=== PATIENT | female | born 1970 | race Caucasian/White ===

== ENCOUNTER 2018-06-11 16:22 | Inpatient (IN) ==
[2018-06-11 16:54] LABS: Microscopic, Urine URINE MICROSCOPIC (MICROSCOPIC)
[2018-06-11 16:57] LABS: Appearance,Urine SL CLOUDY (Clear); Blood, Urine TRACE-L (Negative); Color,Urine YELLOW (Yellow); Glucose,Urine (UA) 3+ (Negative); Ketones,Urine 2+ (Negative); Leukocyte Esterase,Urine Negative (Negative); Protein,Urine TRACE (Negative)
[2018-06-11 17:01] LABS: Bilirubin,Urine 2+ (Negative)
[2018-06-11 17:04] LABS: Bacteria,Urine 4+ /lpf
[2018-06-11 17:08] LABS: Eosinophils % 0.1 % (0.1-12.0); Hemoglobin 14.2 g/dL (12.2-16.2); Red Cell Distribution Width 14.9 % (11.5-17.5)
[2018-06-11 17:15] LABS: Basophils # 0.3 K/mm3 (0-0.2); Hematocrit 44.9 % (37.0-47.0); Lymphocytes # 1.2 K/mm3 (0.7-4.5); Lymphocytes % 4.5 % (10-50); Mean Corpuscular HGB Conc 31.6 g/dL (31.8-35.4); Mean Corpuscular Hemoglobin 25.6 pg (27.0-31.2); Mean Corpuscular Volume 81.1 fl (81-99); Mean Platelet Volume 9.1 fl (7.4-10.4); Monocytes # 0.9 K/mm3 (0.1-1.0); Monocytes % 3.3 % (1.7-9.3); Neutrophils # 24.4 K/mm3 (1.8-7.8); Neutrophils % 91.1 % (37.0-80.0); Platelet Count 98 K/mm3 (142-424); Red Blood Count 5.54 M/mm3 (4.20-5.40); White Blood Count 26.8 K/mm3 (4.8-10.8)
[2018-06-11 17:20] LABS: Albumin Level 1.6 gm/dL (3.4-5.0); Albumin/Globulin Ratio 0.3 (1.1-1.8); Anion Gap 22.9 mEq/L (5-15); Bilirubin,Total 4.6 mg/dL (0.2-1.0); Calcium 9.1 mg/dL (8.5-10.1); Globulin 5.8 gm/dl (1.3-3.2); Potassium 3.9 mmoL/L (3.5-5.1); Total Protein,Serum 7.4 gm/dL (6.4-8.2)
--- NOTE | 2018-06-11 17:22 | Emergency Department Note ---
ED Disposition Clinical Impression: Nausea & vomiting, Dehydration, Hyperglycemia, Metabolic acidosis, Leucocytosis, Hyponatremia, Lactic acidosis Clinical Impression: (Ruled Out): NVD (normal vaginal delivery) Disposition: Still a Patient Condition on Discharge: Fair Referrals: Nick Kulkarni MD [Primary Care Provider] - - Critical Care Critical Care Time: No Attestation: On 06/11/18, the high probability of a clinically significant, sudden or life threatening deterioration of the following system(s) required my full and direct attention, intervention and personal management. The time I documented below is in addition to time spent performing reported procedures but includes the following listed in this critical care notation. Medical Decision Making - Alphonso Inquiry Pt receiving controlled substance: No Alphonso was queried for this patient: No Vital Signs: 06/11/18 16:29 06/11/18 17:20 06/11/18 18:27 Temperature 98.0 F Temperature Source Oral Pulse Rate [Right Brachial] 129 H 90 116 H Respiratory Rate 20 18 Blood Pressure [Right Arm] 123/70 129/73 125/61 Blood Pressure Mean [Right Arm] 87 91 82 Blood Pressure Source [Right Arm] Automatic Cuff Automatic Cuff Automatic Cuff Blood Pressure Position [Right Arm] Sitting Sitting Sitting 02 Sat by Pulse Oximetry 97 93 L 100 Oxygen Delivery Method Room Air Room Air 06/11/18 18:30 Temperature Temperature Source Pulse Rate [Right Brachial] 119 H Respiratory Rate Blood Pressure [Right Arm] 149/77 H Blood Pressure Mean [Right Arm] 101 Blood Pressure Source [Right Arm] Blood Pressure Position [Right Arm] 02 Sat by Pulse Oximetry 97 Oxygen Delivery Method - Lab Data Lab Results 06/11/18 16:47: Urine Color Yellow, Urine Appearance Sl cloudy, Urine pH 7.0, Ur Specific [place] 1.010, Urine Protein Trace, Urine Glucose (UA) 3+, Urine Ketones 2+, Urine Blood Trace-l, Urine Nitrate Negative, Urine Bilirubin 2+ A, Urine Urobilinogen 2.0, Ur Leukocyte Esterase Negative, Urine WBC 10-20, Ur Squamous Epith Cells 5-10, Urine Bacteria 4+ 06/11/18 16:55: WBC 26.8 H*, RBC 5.54 H, Hgb 14.2, Hct 44.9, MCV 81.1, MCH 25.6 L, MCHC 31.6 L, RDW 14.9, Plt Count 98 L, MPV 9.1, Neut % (Auto) 91.1 H, Lymph % (Auto) 4.5 L, [place] % (Auto) 3.3, Eos % (Auto) 0.1, Baso % (Auto) 1.0, Neut # (Auto) 24.4 H, Lymph # (Auto) 1.2, [place] # (Auto) 0.9, Eos # (Auto) 0.0, Baso # (Auto) 0.3 H, Total Counted 100, Neutrophils % (Manual) 89 H, Band Neutrophils % 1.0, Lymphocytes % (Manual) 7 L, Monocytes % (Manual) 3, Platelet Estimate Moderate decrease, RBC Morphology Normal 06/11/18 16:55: Sodium 123 L, Potassium 3.9, Chloride 85 L, Carbon Dioxide 19 L, Anion Gap 22.9 H, BUN 42 H, Creatinine 1.59 H, Estimated Creat Clear 64, Estimated GFR 35 L, Est GFR ( Amer) 42 L, Glucose 474 H*, Calcium 9.1, Total Bilirubin 4.6 H, AST 13 L, ALT 31, Alkaline Phosphatase 454 H, Total Protein 7.4, Albumin 1.6 L, Globulin 5.8 H, Albumin/Globulin Ratio 0.3 L 06/11/18 16:55: Lactate 2.4 H 06/11/18 16:55: Magnesium 1.4, Total Creatine Kinase 11 L, CK-MB (CK-2) 0.5, CK- MB (CK-2) Rel Index 4.5 H, Troponin I < 0.02 06/11/18 16:55: Acetone Level None detected 06/11/18 17:58: Specimen Source R/r, O2 % R/a, ABG pH 7.43, ABG pCO2 25.7 L, ABG pO2 65.1 L, ABG HCO3 16.8 L, ABG Total CO2 17.6 L, ABG O2 Saturation 93, ABG Base Excess -7.5 L, Brandon Test Y Result diagrams: 06/11/18 16:55 06/11/18 16:55 Orders (Tests/Meds): ED MEDICATIONS Generic Name Dose Route Start Last Admin Trade Name Freq PRN Reason Stop Dose Admin Ertapenem 1 gm/ Sodium 50 mls @ 100 mls/hr 06/11/18 17:30 06/11/18 17:39 Chloride IV 12/02/18 17:29 100 mls/hr Q24H AMAURI Administration Protocol Discontinued Medications Generic Name Dose Route Start Last Admin Trade Name Leroy PRN Reason Stop Dose Admin Sodium Chloride 1,000 mls @ 999 mls/hr 06/11/18 17:30 06/11/18 17:39 Sod Chlor 0.9% 1000ml Bag IV 06/11/18 18:30 999 mls/hr .Q1H1M AMAURI Administration Insulin Human Regular 10 unit 06/11/18 19:13 Humulin R Insulin 100 Units/Ml 10ml Vial SQ 06/11/18 19:14 ONCE ONE ORDERS Category Date Time Status CT head/brain wo con Stat Cat Scan 06/11/18 17:18 Taken Acute abdomen XR series [XR acute abdomen series] Stat Exams 06/11/18 17:18 Taken Chest XR 2 view (NOT portable) [XR chest 2V] Stat Exams 06/11/18 17:24 Taken Complete Blood Count Auto Diff Stat Lab 06/11/18 16:55 Results Drug Screen,Urine Stat Lab 06/11/18 17:18 Ordered Peripheral Smear Review Stat Lab 06/11/18 16:55 Results UA [Urinalysis and Microscopic] Stat Lab 06/11/18 16:47 Ordered Blood Culture Stat Micro 06/11/18 16:50 Ordered Urine Culture Stat Micro 06/11/18 16:47 Received Arterial Blood Gas Stat RT 06/11/18 17:23 Ordered - Radiology Data #1 Image(s): Chest, Abdomen Image Reviewed: Yes I reviewed the patient's radiology image Preliminary Findings: Abnormal CXR: no acute finding right lower lobe granuloma. abdomen: no free air no fluid level Medical Decision Narrative: I spoke with the patient was started feeling better about admission for sugar control and IV fluids and antibiotics. I spoke with Dr. Knight who agreed to admit the patient on behalf of Dr. Dawn. Weakness HPI - General Chief complaint: Weakness Stated complaint: Nauseated, l shoulder pain Time Seen by Provider: 06/11/18 17:00 Mode of Arrival: Wheelchair Limitations: No Limitations Description of Symptoms (Recalled from ER Triage Doc. by RN): Pt reports has been feeling lethargic, n/v since of this past week. Pt reports she saw her PCP on , was prescribed zofran for nausea and had blood work done. Pt reports has been having L shoulder pain, states pain while trying to get off of the couch, pt reports her shoulder hurts when putting pressure on it. Pt friend states pt has been "disoriented" states she hasn't been able to remember things. - History of Present Illness HPI Narrative: 47 years old white female with a history of diabetes mellitus who developed nausea vomiting 4 days ago. She was seen by her primary care physician given Zofran with resolution of her vomiting. Has not checked her diabetes in 3 days. She feels weak and unable to care for her 2 years old. Also she complains of left shoulder pain for 4 days since she started vomiting. She denies having fever chills headache neck stiffness or rigidity chest pain palpitations hematemesis coffee-ground emesis melanotic stool or diarrhea. She denies having dysuria hematuria or frequency. MD Complaint: generalized weakness Onset (ago): day(s) (4 days.) Duration: constant Location: generalized Migration: none Severity: moderate Relieving factors: none Exacerbating factors: none Context: recent illness Associated symptoms: nausea/vomiting, other (Left shoulder pain.) - Related Data Home Medications Medication Instructions Recorded Confirmed Metformin HCl 1,000 mg PO DAILY 06/11/18 06/11/18 Allergies Allergy/AdvReac Type Severity Reaction Status Date / Time No Known Allergies Allergy Verified 06/11/18 16:37 [facility] History I have reviewed the patient's past medical history: Yes Medical History: Reports:: Diabetes Mellitus Type 2 - Social History Alcohol Intake: never - Psychiatric History Expresses thoughts of harming self/others: None Suicide Plan Description: No Plan ROS Obtained: Yes All systems reviewed & no additional complaints Physical Exam - General General appearance: alert, in no apparent distress - Head Head exam: atraumatic, normocephalic, normal inspection - Eye Eye exam: Present: normal appearance, PERRL, EOMI. Absent: scleral icterus, nystagmus - ENT ENT exam: Present: normal exam, normal oropharynx, mucous membranes dry, TM's normal bilaterally, normal external ear exam - Neck Neck exam: Present: normal inspection, full ROM, trachea midline. Absent: meningismus, lymphadenopathy - Chest Chest inspection: Present: normal inspection, symmetric chest wall rise. Absent: tenderness - Respiratory Respiratory exam: Present: normal lung sounds bilaterally. Absent: respiratory distress, wheezes - Cardiovascular Cardiovascular exam: Present: regular rate, normal rhythm, tachycardia, normal heart sounds. Absent: JVD - Abdominal Exam Abdominal exam: Present: soft, normal bowel sounds. Absent: distention, tenderness, guarding, rebound, rigidity - External exam: Present: normal external exam - Extremities Exam Extremities exam: Present: normal inspection, full ROM, normal capillary refill. Absent: tenderness, pedal edema, calf tenderness - Back Exam Back exam: Present: normal inspection. Absent: tenderness, CVA tenderness (R), CVA tenderness (L), paraspinal tenderness, vertebral tenderness - Neurological Exam Neurological exam: Present: alert, oriented X3, CN II-XII intact, motor sensory deficit, reflexes normal - Psychiatric Psychiatric exam: Present: normal affect, normal mood - Skin Skin exam: Present: warm, dry, intact, normal color - Lymphatic Lymphatic Findings: no adenopathy
[2018-06-11 17:36] LABS: Lymphocytes % 7 % (10-50); Monocytes % 3 % (2-9); Neutrophils % 89 % (42-76); RBC Morphology Normal; Total Cells Counted 100
[2018-06-11 17:47] LABS: Creatine Kinase 11 U/L (26-192)
[2018-06-11 17:59] LABS: ABG Base Excess -7.5 mmol/L (-2.4-2.3); ABG HCO3 16.8 mmhg (22.0-26.0); ABG Oxygen Saturation 93 % (90-100); ABG PCO2 25.7 mmhg (35.0-45.0); ABG PH 7.43 mmol/L (7.35-7.45); ABG PO2 65.1 mmhg (80-100); ABG TCO2 17.6 mmhg (23-27)
[2018-06-11 18:00] LABS: Allen's Test Y; Oxygen R/A %
[2018-06-12 05:25] LABS: Basophils # 0.1 K/mm3 (0-0.2); Basophils % 0.3 % (0.1-2.0); Eosinophils % 0.1 % (0.1-12.0); Hemoglobin 11.4 g/dL (12.2-16.2); Lymphocytes % 5.3 % (10-50); Mean Corpuscular HGB Conc 31.8 g/dL (31.8-35.4); Mean Corpuscular Hemoglobin 25.3 pg (27.0-31.2); Mean Corpuscular Volume 79.5 fl (81-99); Mean Platelet Volume 8.1 fl (7.4-10.4); Monocytes # 0.6 K/mm3 (0.1-1.0); Monocytes % 3.2 % (1.7-9.3); Neutrophils # 16.8 K/mm3 (1.8-7.8); Neutrophils % 91.1 % (37.0-80.0); Platelet Count 90 K/mm3 (142-424); Red Blood Count 4.52 M/mm3 (4.20-5.40); Red Cell Distribution Width 14.9 % (11.5-17.5); White Blood Count 18.4 K/mm3 (4.8-10.8)
[2018-06-12 05:34] LABS: Anion Gap 16.7 mEq/L (5-15); Blood Urea Nitrogen 37 mg/dL (7-18); Carbon Dioxide 20 mmol/L (21.0-32.0); Chloride 93 mmol/L (98-107); Glucose 294 mg/dL (74-106); Potassium 3.7 mmoL/L (3.5-5.1); Sodium 126 mmol/L (136-145)
[2018-06-12 05:35] LABS: Calcium 8.1 mg/dL (8.5-10.1)
[2018-06-12 05:39] LABS: Lymphocytes % 6 % (10-50); Monocytes % 2 % (2-9); Neutrophils % 84 % (42-76); Total Cells Counted 100
[2018-06-12 05:40] LABS: Hypochromasia 1+
--- NOTE | 2018-06-12 07:33 | Pharmacy Consult Notes ---
[facility] Pharmacy VTE Monitoring - Patient Demographics Admission date: 06/11/18 Report Date: 06/12/18 Time: 07:32 Allergies/Adverse Reactions: Patient Allergies No Known Allergies Allergy (Verified 06/11/18 16:37) Height: 1.63 m Weight: 91.263 kg Patient Problems: Current Active Problems Nausea & vomiting (Acute) Dehydration (Acute) Hyperglycemia (Acute) Metabolic acidosis (Acute) Leucocytosis (Acute) Hyponatremia (Acute) Lactic acidosis (Acute) - VTE Risk Labs: VTE Related Lab Results Hgb 11.4 g/dL (12.2-16.2) L D 06/12/18 04:45 Hct 36.0 % (37.0-47.0) L 06/12/18 04:45 Plt Count 90 K/mm3 (142-424) L 06/12/18 04:45 BUN 37 mg/dL (7-18) H 06/12/18 04:45 Creatinine 1.16 mg/dL (0.55-1.02) H D 06/12/18 04:45 Estimated Creat Clear 88 mL/min (50-200) 06/12/18 04:45 VTE Score: 3 VTE Risk Level: Low Risk - Prophylaxis VTE Prophylaxis Ordered?: Yes Types of VTE Prophylaxis: TEDS Knee High Location of Applied Device: Bilateral Lower Extremeties - VTE Diagnosis Confirmed Treatment or plan recommended: Continue Current Treatment
--- NOTE | 2018-06-12 09:41 | History & Physical Report ---
*Admission Date: 06/11/18 *Chief complaint: Weakness, confusion, left shoulder pain *History of present illness: 47 yr old female with history of hypothyroidism, type 2 diabetes and depression presented to ED with new onset confusion and weakness. Reports that her symptoms started initially about a week ago with gastroenteritis symptoms including vomiting, diarrhea and diffuse abdominal pain. She was seen by PCP on 06/08/18 and given a script for zofran. She reports that she took one dose of zofran but continued to have nausea and vomiting. Later that same day she began having acute left shoulder pain when she tried to get up from the couch. Since that time her left shoulder pain has continued, she has felt progressively weak and became disoriented. In the ED she was found to have significant leukocytosis, hyponatremia, elevated lactic acid, negative troponins, elevated bilirubin level and was admitted for IV fluids, antibiotics and further workup. This morning she reports that she is "not very well". Continues to have left shoulder pain that she rates 8/10, worse with certain positions but it is constant. She denies current abdominal pain, dysuria, blood in urine. She does endorse poor appetite and nausea but no emisis for at least 48 hours. [facility] History I have reviewed the patient's past medical history: Yes Medical History: Reports:: Anxiety, Diabetes Mellitus Type 2 Other Medical History: Reports: Hypothyroidism, Thyroid Disease Other Surgeries: Yes: Appendectomy, Cholecystectomy, Hysterectomy-Total Amputation: No Fractures: No - *Social History Educational Level: Completed High School Smoking Status: Former smoker Alcohol Intake: never Substance Use Type: denies use Occupational Status: unemployed Household Members: children Comment: 2 yr old son - Psychiatric History Expresses thoughts of harming self/others: None Suicide Plan Description: No Plan Pschychiatric History:: Reports:: Depression *Family Hx:: Cancer (cervical), Diabetes, Stroke Review of Systems - Review of Systems Review of systems:: pertinent systems reviewed and negative unless documented below - Constitutional Reports anorexia, Reports body ache(s), Reports weakness, Denies fever(s) - Eyes Denies change in vision - ENT Reports dizziness, Reports dry mouth, Denies difficulty swallowing, Denies sore throat, Denies throat swelling - *Cardiovascular Denies chest pain, Denies shortness of breath with activity, Denies leg swelling - *Respiratory Denies cough, Denies shortness of breath - *Gastrointestinal Reports abdominal pain, Reports nausea, Reports vomiting, Denies change in stools, Denies coffee ground vomit - *Genitourinary Denies difficulty urinating, Denies painful urination, Denies urinary urgency - *Musculoskeletal Reports joint pain (left shoulder), Reports limited joint movement - Integumentary/Breasts Denies rash - *Neurologic Reports confusion, Reports dizziness, Reports weakness - Psychiatric Reports anxiety (worried about her son while she is in hospital) - Hematologic/Lymphatic Denies easy bleeding, Denies easy bruising Meds Home Medications Medication Instructions Recorded Confirmed Type Levothyroxine Sodium 75 mcg PO DAILY 06/11/18 06/12/18 History [Levothyroxine 75mcg (0.075mg) Tab] Simvastatin 40 mg PO HS 06/11/18 06/12/18 History Venlafaxine HCl [Effexor XR 75mg 75 mg PO DAILY 06/11/18 06/12/18 History capsule] Venlafaxine HCl [Venlafaxine HCl 150 mg PO DAILY 06/11/18 06/11/18 History ER] Lisinopril [Lisinopril 10mg Tab] 10 mg PO DAILY 06/12/18 06/12/18 History Metformin HCl 500 mg PO BID 06/12/18 06/12/18 History Allergies Allergy/AdvReac Type Severity Reaction Status Date / Time No Known Allergies Allergy Verified 06/11/18 16:37 Exam Vital signs and Labs for Last 24 Hours: Temp Pulse Resp BP Pulse Ox 99.6 F 118 H 22 143/71 H 94 L 06/12/18 08:00 06/12/18 08:00 06/12/18 08:00 06/12/18 08:00 06/12/18 08:00 Laboratory Results - last 24 hr 06/11/18 16:47: Urine Color Yellow, Urine Appearance Sl cloudy, Urine pH 7.0, Ur Specific [place] 1.010, Urine Protein Trace, Urine Glucose (UA) 3+, Urine Ket ones 2+, Urine Blood Trace-l, Urine Nitrate Negative, Urine Bilirubin 2+ A, Urine Urobilinogen 2.0, Ur Leukocyte Esterase Negative, Urine WBC 10-20, Ur Squamous Epith Cells 5-10, Urine Bacteria 4+ 06/11/18 16:55: WBC 26.8 H*, RBC 5.54 H, Hgb 14.2, Hct 44.9, MCV 81.1, MCH 25.6 L, MCHC 31.6 L, RDW 14.9, Plt Count 98 L, MPV 9.1, Neut % (Auto) 91.1 H, Lymph % (Auto) 4.5 L, [place] % (Auto) 3.3, Eos % (Auto) 0.1, Baso % (Auto) 1.0, Neut # (Auto) 24.4 H, Lymph # (Auto) 1.2, [place] # (Auto) 0.9, Eos # (Auto) 0.0, Baso # (Auto) 0.3 H, Total Counted 100, Neutrophils % (Manual) 89 H, Band Neutrophils % 1.0, Lymphocytes % (Manual) 7 L, Monocytes % (Manual) 3, Platelet Estimate Moderate decrease, RBC Morphology Normal 06/11/18 16:55: Sodium 123 L, Potassium 3.9, Chloride 85 L, Carbon Dioxide 19 L, Anion Gap 22.9 H, BUN 42 H, Creatinine 1.59 H, Estimated Creat Clear 64, Estimated GFR 35 L, Est GFR ( Amer) 42 L, Glucose 474 H*, Calcium 9.1, Total Bilirubin 4.6 H, AST 13 L, ALT 31, Alkaline Phosphatase 454 H, Total Protein 7.4, Albumin 1.6 L, Globulin 5.8 H, Albumin/Globulin Ratio 0.3 L 06/11/18 16:55: Lactate 2.4 H 06/11/18 16:55: Magnesium 1.4, Total Creatine Kinase 11 L, CK-MB (CK-2) 0.5, CK- MB (CK-2) Rel Index 4.5 H, Troponin I < 0.02 06/11/18 16:55: Acetone Level None detected 06/11/18 17:58: Specimen Source R/r, O2 % R/a, ABG pH 7.43, ABG pCO2 25.7 L, ABG pO2 65.1 L, ABG HCO3 16.8 L, ABG Total CO2 17.6 L, ABG O2 Saturation 93, ABG Base Excess -7.5 L, Brandon Test Y 06/11/18 22:00: Lactate 2.3 H 06/11/18 22:37: POC Glucose 440 H* 06/11/18 22:48: Troponin I < 0.02 06/12/18 00:30: Lactate 1.0 06/12/18 04:45: Sodium 126 L, Potassium 3.7, Chloride 93 L, Carbon Dioxide 20 L, Anion Gap 16.7 H, BUN 37 H, Creatinine 1.16 H D, Estimated Creat Clear 88, Estimated GFR 50 L, Est GFR ( Amer) 60 D, Glucose 294 H D, Calcium 8.1 L D, Troponin I < 0.02 06/12/18 04:45: WBC 18.4 H D, RBC 4.52, Hgb 11.4 L D, Hct 36.0 L, MCV 79.5 L, MCH 25.3 L, MCHC 31.8, RDW 14.9, Plt Count 90 L, MPV 8.1, Neut % (Auto) 91.1 H, Lymph % (Auto) 5.3 L, [place] % (Auto) 3.2, Eos % (Auto) 0.1, Baso % (Auto) 0.3, Neut # (Auto) 16.8 H, Lymph # (Auto) 1.0, [place] # (Auto) 0.6, Eos # (Auto) 0.0, Baso # (Auto) 0.1, Total Counted 100, Neutrophils % (Manual) 84 H, Band Neutrophils % 8.0, Lymphocytes % (Manual) 6 L, Monocytes % (Manual) 2, Platelet Estimate Slight decrease, Hypochromasia 1+, Microcytosis 1+ 06/12/18 05:47: POC Glucose 279 H I & O for Last 24 hours: Intake & Output 06/09/18 06/10/18 06/11/18 06/12/18 11:59 11:59 11:59 11:59 Intake Total 2438 / 2438 Output Total 500 / 500 Balance 193 / 193 Weight 201 lb 3.2 oz Microbiology Reports for the Last 24 Hours: Microbiology 06/11/18 16:50 Blood Blood Culture - Preliminary 06/11/18 16:47 Urine,Clean Catch Urine Culture - Preliminary Gram Negative Rods - Constitutional no acute distress (mildly uncomfortable), obese, cooperative - *Routine HEENT Exam Head: Present: atraumatic Eye: Present: PERRL, conjunctival icterus ENT: Present: mucous membranes moist, oropharynx clear - *Routine Neck Exam Present: supple. Absent: lymphadenopathy, tenderness, swelling - *Routine Respiratory Exam Present: CTA bilaterally - *Routine Cardiovascular Exam Present: RRR. Absent: murmur - *Routine Abdominal Exam Present: soft, normoactive bowel sounds. Absent: tenderness, distended, guarding - *Routine Extremities Exam Present: pulses intact, normal capillary refill Comments: left shoulder abduction to 90 degrees, painful internal and external rotation, nontender to palpation. No erythema or warmth - *Routine Skin Exam Present: intact, warm, normal turgor. Absent: pallor - *Routine Neurological Exam Present: alert, oriented X3 (but recall of the past 72 hours is limited) Assessment and Plan (1) Jaundice Current visit: Yes Status: Acute Category: Medical Code(s): R17 - Unspecified jaundice (2) Elevated bilirubin Current visit: Yes Status: Acute Category: Medical Code(s): R17 - Unspecified jaundice (3) Bacteremia Current visit: Yes Status: Acute Category: Medical Code(s): R78.81 - Bacteremia (4) Acute UTI Current visit: Yes Status: Acute Category: Medical Code(s): N39.0 - Urinary tract infection, site not specified (5) Left shoulder pain Current visit: Yes Status: Acute Qualifiers: Chronicity: acute Qualified Code(s): M25.512 - Pain in left shoulder Category: Medical Code(s): M25.512 - Pain in left shoulder Orthopedic origin vs. referred pain. Treat with analgesics as needed, continue IV antibiotics, obtain xrays (6) Hyponatremia Current visit: Yes Status: Acute Category: Medical Code(s): E87.1 - Hypo- osmolality and hyponatremia (7) Lactic acidosis Current visit: Yes Status: Acute Category: Medical Code(s): E87.2 - Acidosis (8) Nausea & vomiting Current visit: Yes Status: Acute Category: Medical Code(s): R11.2 - Nausea with vomiting, unspecified (9) Type 2 diabetes mellitus Current visit: Yes Status: Chronic Qualifiers: Diabetes mellitus assistant terminal manager insulin use: without assistant terminal manager use Diabetes mellitus complication status: without complication Qualified Code(s): E11.9 - Type 2 diabetes mellitus without complications Category: Medical Code(s): E11.9 - Type 2 diabetes mellitus without complications (10) Hypothyroidism Current visit: Yes Status: Chronic Qualifiers: Hypothyroidism type: unspecified Qualified Code(s): E03.9 - Hypothyroidism, unspecified Category: Medical Code(s): E03.9 - Hypothyroidism, unspecified - Assessment and plan all Dx Assessment and Plan for all problems:: Continue IV Invanz. Urine culture growing gram negative rods, blood culture positive for proteus on PCR. Rec CT abd/pelvis to further evaluate abnormal liver studies and bacteremia Hepatitis panel ordered Hyponatremia improving this morning and lactic acid has normalized. Continue IV fluids. FSBS AC and HS or every 6 hours while NPO, cover with sliding scale
[2018-06-12 10:04] LABS: Albumin Level 1.3 gm/dL (3.4-5.0); Bilirubin,Direct 2.3 mg/dL (0.0-0.2); Bilirubin,Indirect 0.8 mg/dL (0.0-0.9); Bilirubin,Total 3.1 mg/dL (0.2-1.0); Total Protein,Serum 6.2 gm/dL (6.4-8.2)
[2018-06-13 06:17] LABS: Hepatitis B Core Antibody IgM Negative (Negative); Hepatitis B Surface Antigen Negative (Negative)
[2018-06-13 06:43] LABS: Basophils % 0.2 % (0.1-2.0); Eosinophils # 0.1 K/mm3 (0.0-0.4); Eosinophils % 0.3 % (0.1-12.0); Hematocrit 34.5 % (37.0-47.0); Hemoglobin 10.7 g/dL (12.2-16.2); Lymphocytes # 1.5 K/mm3 (0.7-4.5); Lymphocytes % 9.5 % (10-50); Mean Corpuscular HGB Conc 31.1 g/dL (31.8-35.4); Mean Corpuscular Hemoglobin 25.1 pg (27.0-31.2); Mean Corpuscular Volume 80.9 fl (81-99); Mean Platelet Volume 8.5 fl (7.4-10.4); Monocytes # 0.5 K/mm3 (0.1-1.0); Monocytes % 3.2 % (1.7-9.3); Neutrophils # 13.4 K/mm3 (1.8-7.8); Neutrophils % 86.8 % (37.0-80.0); Platelet Count 102 K/mm3 (142-424); Red Blood Count 4.26 M/mm3 (4.20-5.40); Red Cell Distribution Width 14.9 % (11.5-17.5); White Blood Count 15.5 K/mm3 (4.8-10.8)
[2018-06-13 07:05] LABS: Albumin Level 1.2 gm/dL (3.4-5.0); Albumin/Globulin Ratio 0.3 (1.1-1.8); Anion Gap 16.4 mEq/L (5-15); Bilirubin,Total 2.3 mg/dL (0.2-1.0); Calcium 7.9 mg/dL (8.5-10.1); Globulin 4.8 gm/dl (1.3-3.2); Potassium 4.4 mmoL/L (3.5-5.1)
--- NOTE | 2018-06-13 07:54 | Progress Note ---
Internal Medicine - PN: Subj *Date: 06/13/18 *Time: 08:46 Interval history: Interval improvement. Denies fevers, abdominal pain and nausea. Complaining of some diarrhea. Tolerating advancement in her diet. Blood cultures positive for Proteus. Continue Invanz while sensitivities pend. Imaging with obstructing ureterovesicular stone, pending urology to see and drop recommendations. N.p.o. overnight Exam Vital signs and Labs for Last 24 Hours: Temp Pulse Resp BP Pulse Ox 98.2 F 104 H 18 147/71 H 95 06/13/18 04:00 06/13/18 04:00 06/13/18 04:00 06/13/18 04:00 06/13/18 04:00 Laboratory Results - last 24 hr 06/12/18 04:45: Total Bilirubin 3.1 H, Direct Bilirubin 2.3 H, Indirect Bilirubin 0.8, AST 13 L, ALT 23 D, Alkaline Phosphatase 312 H, Total Protein 6.2 L, Albumin 1.3 L D, Amylase 6 L, Lipase 53 L 06/12/18 16:19: POC Glucose 290 H 06/12/18 21:29: POC Glucose 292 H 06/13/18 05:56: POC Glucose 278 H 06/13/18 06:33: WBC 15.5 H, RBC 4.26, Hgb 10.7 L, Hct 34.5 L, MCV 80.9 L, MCH 25.1 L, MCHC 31.1 L, RDW 14.9, Plt Count 102 L, MPV 8.5, Neut % (Auto) 86.8 H, Lymph % (Auto) 9.5 L, [place] % (Auto) 3.2, Eos % (Auto) 0.3, Baso % (Auto) 0.2, Neut # (Auto) 13.4 H, Lymph # (Auto) 1.5, [place] # (Auto) 0.5, Eos # (Auto) 0.1, Baso # (Auto) 0.0 06/13/18 06:33: Sodium 130 L, Potassium 4.4, Chloride 97 L, Carbon Dioxide 21, Anion Gap 16.4 H, BUN 26 H D, Creatinine 0.83 D, Estimated Creat Clear 118, Estimated GFR 73, Est GFR ( Amer) 88 D, Glucose 300 H, Calcium 7.9 L, Total Bilirubin 2.3 H, AST 7 L D, ALT 20, Alkaline Phosphatase 255 H, Total Protein 6.0 L, Albumin 1.2 L, Globulin 4.8 H, Albumin/Globulin Ratio 0.3 L I & O for Last 24 hours: Intake & Output 06/10/18 06/11/18 06/12/18 06/13/18 23:59 23:59 23:59 23:59 Intake Total 1100 / 1100 1578 / 1578 120 / 120 Output Total 800 / 800 Balance 1100 / 1100 778 / 778 120 / 120 Weight 94.801 kg 91.263 kg Microbiology Reports for the Last 24 Hours: Microbiology 06/11/18 16:47 Urine,Clean Catch Urine Culture - Final Proteus mirabilis 06/11/18 16:50 Blood Blood Culture - Preliminary 06/11/18 16:50 Blood Blood Culture - Preliminary Narrative: - Constitutional no acute distress. Comfortable lying in bed, obese, cooperative - *Routine HEENT Exam Head: Present: atraumatic Eye: Present: PERRL, conjunctival icterus ENT: Present: mucous membranes moist, oropharynx clear - *Routine Neck Exam Present: supple. Absent: lymphadenopathy, tenderness, swelling - *Routine Respiratory Exam Present: CTA bilaterally - *Routine Cardiovascular Exam Present: RRR. Absent: murmur - *Routine Abdominal Exam Present: soft, normoactive bowel sounds. Absent: tenderness, distended, guarding - *Routine Extremities Exam Present: pulses intact, normal capillary refill Comments: left shoulder abduction to 90 degrees, painful internal and external rotation, nontender to palpation. No erythema or warmth - *Routine Skin Exam Present: intact, warm, normal turgor. Absent: pallor - *Routine Neurological Exam Present: alert, oriented X3 (but recall of the past 72 hours is limited) - *Routine HEENT Exam Head: Present: normocephalic, atraumatic Eye: Present: EOMI, PERRL ENT: Present: mucous membranes moist Assessment and Plan (1) Jaundice Current visit: Yes Status: Acute Category: Medical Code(s): R17 - Unspecified jaundice (2) Elevated bilirubin Current visit: Yes Status: Acute Category: Medical Code(s): R17 - Unspecified jaundice (3) Bacteremia Current visit: Yes Status: Acute Category: Medical Code(s): R78.81 - Bacteremia (4) Acute UTI Current visit: Yes Status: Acute Category: Medical Code(s): N39.0 - Urinary tract infection, site not specified (5) Left shoulder pain Current visit: Yes Status: Acute Qualifiers: Chronicity: acute Qualified Code(s): M25.512 - Pain in left shoulder Category: Medical Code(s): M25.512 - Pain in left shoulder (6) Hyponatremia Current visit: Yes Status: Acute Category: Medical Code(s): E87.1 - Hypo- osmolality and hyponatremia (7) Lactic acidosis Current visit: Yes Status: Acute Category: Medical Code(s): E87.2 - Acidosis (8) Nausea & vomiting Current visit: Yes Status: Acute Category: Medical Code(s): R11.2 - Nausea with vomiting, unspecified (9) Type 2 diabetes mellitus Current visit: Yes Status: Chronic Qualifiers: Diabetes mellitus spooling supervisor insulin use: without spooling supervisor use Diabetes mellitus complication status: without complication Qualified Code(s): E11.9 - Type 2 diabetes mellitus without complications Category: Medical Code(s): E11.9 - Type 2 diabetes mellitus without complications (10) Hypothyroidism Current visit: Yes Status: Chronic Qualifiers: Hypothyroidism type: unspecified Qualified Code(s): E03.9 - Hypothyroidism, unspecified Category: Medical Code(s): E03.9 - Hypothyroidism, unspecified - Assessment and plan all Dx Assessment and Plan for all problems:: Continue IV antibiotic -N.p.o. pending urology eval -Proteus cultures pending sensitivities -Continues to require inpatient medical management, not stable for discharge
[2018-06-13 08:06] LABS: Lymphocytes % 5 % (10-50); Monocytes % 3 % (2-9); Neutrophils % 92 % (42-76); Total Cells Counted 100
[2018-06-13 08:07] LABS: RBC Morphology Normal
[2018-06-13 09:59] LABS: Hepatitis C Antibody 0.1 s/co ratio (0.0-0.9)
--- NOTE | 2018-06-13 13:58 | Progress Note ---
[facility] Anesthesia Checklist - Patient Identification Patient Identification: Arm Band - Structural Data Admitted From: Home Planned Operative Procedure/s: right ureteroscopy with stent placement Consent for Planned Operative Procedure(s) Verified: Yes Verified Documents: Surgical Consent, History and Physical - NPO Status Verified Time NPO: 00:00 - Additional verifications Anesthesia Reactions: No - Airway Assessment C-Spine Mobility Assessed: Yes (mp2) TMJ Mobility Assessed: Yes Dentition: Good Dentition - Neurological Assessment Level of Consciousness: Awake - Anesthesia Plan Anesthesia Risk discussed: Yes Anesthesia Plan: Verified ASA Class: III Anesthesia Type: General [facility] History I have reviewed the patient's past medical history: Yes Medical History: Reports:: Anxiety, Depression, Diabetes Mellitus Type 2 Other Medical History: Reports: Hypothyroidism, Thyroid Disease Other Surgeries: Yes: Appendectomy, Cholecystectomy, Hysterectomy-Total Amputation: No Fractures: No - *Social History Educational Level: Completed High School Smoking Status: Former smoker Alcohol Intake: never Substance Use Type: denies use Occupational Status: unemployed Household Members: children - Psychiatric History Expresses thoughts of harming self/others: None Suicide Plan Description: No Plan Pschychiatric History:: Reports:: Anxiety, Depression *Family Hx:: Cancer (cervical), Diabetes, Stroke
--- NOTE | 2018-06-13 13:59 | Progress Note ---
[facility] Anesthesia Record Part I Intake, IV Amount: 700 Estimated blood loss (mL): 0 Urine output (mL): 0 Blood Pressure: 157/86 SaO2: 92 Pulse Rate: 100 Respiratory Rate: 24 Temperature: 98.5 F Patient is:: Drowsy, Stable Stable to PACU at:: 13:45
--- NOTE | 2018-06-13 17:43 | Consult Report ---
*Admission Date: 06/11/18 *Chief complaint: Ureteral calculus and sepsis *History of present illness: She was admitted on the with acute illness. She was found to have a 5 mm stone at her right ureterovesical junction. She is also found to have a urinary infection and has recently grown Proteus. So had positive blood cultures. She has no previous history of stones. Reviewed her CT scan. 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 She states that in 2009 during evaluation for uterine cancer she was told she had a stone in her right kidney. This is never been addressed. She has not had flank pain until recent. The right no additional stones are noted. She was moved from the intensive care unit to the floor today. Her white count today is 15,000. It was 24,000 on presentation. We discussed proceeding with at least ureteral stent placement and hopeful stone removal. To her knowledge she has not passed the stone. She still has right- sided flank discomfort. She understands and wishes to proceed. She would like to proceed as soon as possible. We will perform this today Review of Systems - *Neurologic Reports confusion, Reports dizziness, Reports dizziness, Reports weakness [facility] History Medical History: Reports:: Anxiety, Depression, Diabetes Mellitus Type 2 Other Medical History: Reports: Hypothyroidism, Thyroid Disease Other Surgeries: Yes: Appendectomy, Cholecystectomy, Hysterectomy-Total Amputation: No Fractures: No - *Social History Educational Level: Completed High School Smoking Status: Former smoker Alcohol Intake: never Substance Use Type: denies use Occupational Status: unemployed Household Members: children - Psychiatric History Expresses thoughts of harming self/others: None Suicide Plan Description: No Plan Pschychiatric History:: Reports:: Anxiety, Depression *Family Hx:: Cancer (cervical), Diabetes, Stroke Meds Home Medications Medication Instructions Recorded Confirmed Type Levothyroxine Sodium 75 mcg PO DAILY 06/11/18 06/12/18 History [Levothyroxine 75mcg (0.075mg) Tab] Simvastatin 40 mg PO HS 06/11/18 06/12/18 History Venlafaxine HCl [Effexor XR 75mg 75 mg PO DAILY 06/11/18 06/12/18 History capsule] Venlafaxine HCl [Venlafaxine HCl 150 mg PO DAILY 06/11/18 06/11/18 History ER] Lisinopril [Lisinopril 10mg Tab] 10 mg PO DAILY 06/12/18 06/12/18 History Metformin HCl 500 mg PO BID 06/12/18 06/12/18 History Allergies Allergy/AdvReac Type Severity Reaction Status Date / Time No Known Allergies Allergy Verified 06/11/18 16:37 Exam Vital signs and Labs for Last 24 Hours: Temp Pulse Resp BP Pulse Ox 97.4 F L 101 H 22 162/72 H 98 06/13/18 15:05 06/13/18 15:05 06/13/18 15:05 06/13/18 15:05 06/13/18 15:05 Laboratory Results - last 24 hr 06/12/18 04:45: Hepatitis A IgM Ab Negative, Hep Bs Antigen Negative, Hep B Core IgM Ab Negative, Hepatitis C Antibody 0.1 06/12/18 21:29: POC Glucose 292 H 06/13/18 05:56: POC Glucose 278 H 06/13/18 06:33: WBC 15.5 H, RBC 4.26, Hgb 10.7 L, Hct 34.5 L, MCV 80.9 L, MCH 25.1 L, MCHC 31.1 L, RDW 14.9, Plt Count 102 L, MPV 8.5, Neut % (Auto) 86.8 H, Lymph % (Auto) 9.5 L, [place] % (Auto) 3.2, Eos % (Auto) 0.3, Baso % (Auto) 0.2, Neut # (Auto) 13.4 H, Lymph # (Auto) 1.5, [place] # (Auto) 0.5, Eos # (Auto) 0.1, Baso # (Auto) 0.0, Total Counted 100, Neutrophils % (Manual) 92 H, Lymphocytes % (Manual) 5 L, Monocytes % (Manual) 3, Platelet Estimate Slight decrease, RBC Morphology Normal 06/13/18 06:33: Sodium 130 L, Potassium 4.4, Chloride 97 L, Carbon Dioxide 21, Anion Gap 16.4 H, BUN 26 H D, Creatinine 0.83 D, Estimated Creat Clear 118, Estimated GFR 73, Est GFR ( Amer) 88 D, Glucose 300 H, Calcium 7.9 L, Total Bilirubin 2.3 H, AST 7 L D, ALT 20, Alkaline Phosphatase 255 H, Total Protein 6.0 L, Albumin 1.2 L, Globulin 4.8 H, Albumin/Globulin Ratio 0.3 L 06/13/18 11:04: POC Glucose 247 H 06/13/18 13:53: POC Glucose 255 H 06/13/18 16:47: POC Glucose 269 H I & O for Last 24 hours: Intake & Output 06/10/18 06/11/18 06/12/18 06/13/18 23:59 23:59 23:59 23:59 Intake Total 1100 / 1100 1578 / 1578 820 / 820 Output Total 800 / 800 Balance 1100 / 1100 778 / 778 820 / 820 Weight 94.801 kg 91.263 kg 91.263 kg Microbiology Reports for the Last 24 Hours: Microbiology 06/11/18 16:50 Blood Blood Culture - Preliminary Gram Negative Rods 06/11/18 16:50 Blood Blood Culture - Preliminary Gram Negative Rods 06/11/18 16:47 Urine,Clean Catch Urine Culture - Final Proteus mirabilis Results - Labs 06/13/18 06:33 06/13/18 06:33 Laboratory Results - last 24 hr 06/12/18 04:45: Hepatitis A IgM Ab Negative, Hep Bs Antigen Negative, Hep B Core IgM Ab Negative, Hepatitis C Antibody 0.1 06/12/18 21:29: POC Glucose 292 H 06/13/18 05:56: POC Glucose 278 H 06/13/18 06:33: WBC 15.5 H, RBC 4.26, Hgb 10.7 L, Hct 34.5 L, MCV 80.9 L, MCH 25.1 L, MCHC 31.1 L, RDW 14.9, Plt Count 102 L, MPV 8.5, Neut % (Auto) 86.8 H, Lymph % (Auto) 9.5 L, [place] % (Auto) 3.2, Eos % (Auto) 0.3, Baso % (Auto) 0.2, Neut # (Auto) 13.4 H, Lymph # (Auto) 1.5, [place] # (Auto) 0.5, Eos # (Auto) 0.1, Baso # (Auto) 0.0, Total Counted 100, Neutrophils % (Manual) 92 H, Lymphocytes % (Manual) 5 L, Monocytes % (Manual) 3, Platelet Estimate Slight decrease, RBC Morphology Normal 06/13/18 06:33: Sodium 130 L, Potassium 4.4, Chloride 97 L, Carbon Dioxide 21, Anion Gap 16.4 H, BUN 26 H D, Creatinine 0.83 D, Estimated Creat Clear 118, Estimated GFR 73, Est GFR ( Amer) 88 D, Glucose 300 H, Calcium 7.9 L, Total Bilirubin 2.3 H, AST 7 L D, ALT 20, Alkaline Phosphatase 255 H, Total Protein 6.0 L, Albumin 1.2 L, Globulin 4.8 H, Albumin/Globulin Ratio 0.3 L 06/13/18 11:04: POC Glucose 247 H 06/13/18 13:53: POC Glucose 255 H 06/13/18 16:47: POC Glucose 269 H Assessment and Plan (1) Jaundice Current visit: Yes Status: Acute Category: Medical Code(s): R17 - Unspecified jaundice (2) Elevated bilirubin Current visit: Yes Status: Acute Category: Medical Code(s): R17 - Unspecified jaundice (3) Bacteremia Current visit: Yes Status: Acute Category: Medical Code(s): R78.81 - Bacteremia (4) Acute UTI Current visit: Yes Status: Acute Category: Medical Code(s): N39.0 - Urinary tract infection, site not specified (5) Left shoulder pain Current visit: Yes Status: Acute Qualifiers: Chronicity: acute Qualified Code(s): M25.512 - Pain in left shoulder Category: Medical Code(s): M25.512 - Pain in left shoulder (6) Hyponatremia Current visit: Yes Status: Acute Category: Medical Code(s): E87.1 - Hypo- osmolality and hyponatremia (7) Lactic acidosis Current visit: Yes Status: Acute Category: Medical Code(s): E87.2 - Acidosis (8) Nausea & vomiting Current visit: Yes Status: Acute Category: Medical Code(s): R11.2 - Nausea with vomiting, unspecified (9) Type 2 diabetes mellitus Current visit: Yes Status: Chronic Qualifiers: Diabetes mellitus terminal operations supervisor insulin use: without terminal operations supervisor use Diabetes mellitus complication status: without complication Qualified Code(s): E11.9 - Type 2 diabetes mellitus without complications Category: Medical Code(s): E11.9 - Type 2 diabetes mellitus without complications (10) Hypothyroidism Current visit: Yes Status: Chronic Qualifiers: Hypothyroidism type: unspecified Qualified Code(s): E03.9 - Hypothyroidism, unspecified Category: Medical Code(s): E03.9 - Hypothyroidism, unspecified
--- NOTE | 2018-06-13 17:48 | Operative Note ---
Date of procedure: 06/13/18 Pre-op Diagnosis:: Right distal ureteral calculus Post-op Diagnosis:: Passed right distal ureteral calculus Procedure performed:: Cystoscopy with diagnostic right ureteroscopy, right ureteral stent placement Surgeon:: Zac Padilla MD CLIPPER OPERATOR:: Juve Rey Anesthesia: MAC Estimated blood loss (mL): 0 Clinical Note:: Patient hospitalized 2 days ago with urinary infection sepsis and 5 mm right distal ureteral stone. She has clinically improved but still has a white count of 15,000 today. She is taken to the operating room for drainage of the right collecting system possible ureteroscopic stone extraction as the stone appeared to be in the transmural ureter. The stone is easily accessible we will plan to remove it ureteroscopically. Operative findings:: Recently passed ureteral stone Operative note:: After satisfactory general anesthesia she was carefully placed in the dorsolithotomy position. Genital area was prepped and draped in standard fashion. After adequate timeout procedure was performed. A 22 [place] cystoscope sheath was introduced. The bladder was inspected and no evidence of stone. The right ureteral orifice was edematous with an area of ecchymosis. The ureteral area on the right side appeared to have somewhat and have an ureterocele. A 0.035 zip wire was placed up the right ureter easily. Definite stone was not seen. Due to the size of the orifice I performed balloon dilation. A 15 [place] 4 cm length balloon dilating system was placed over the wire and station in the transmural ureter. It was inflated to 12 filiberto. It was left up and then deflated and removed. The wire was secured to the drape after removal of the cystoscope. The semirigid ureteroscope was then introduced. This easily traversed the transmural ureter. A stone was not seen. It obviously did pass. The ureter was very capacious and dilated and I easily advanced up to just below the ureteropelvic junction. There was no stone present. She had obviously passed her stone. Scope was grasped and slowly withdrawn. Wire was then used to place stent. 6 she is me a 4.8 x 26 cm length ureteral stent was placed. There is a good coil in the kidney and coil in the bladder. Bladder strain cystoscope removed. String was secured to the suprapubic area with Tegaderm. We will leave this in place for 72 hours. She will hopefully be ready for discharge tomorrow. She will follow-up with me in 3 weeks. Condition: stable Disposition: PACU Specimens:: None Complications:: None
--- NOTE | 2018-06-13 18:22 | Discharge Summary ---
General - General Admission date:: 06/11/18 Discharge date: 06/14/18 HPI HPI: 47 yr old female with history of hypothyroidism, type 2 diabetes and depression presented to ED with new onset confusion and weakness. Reports that her symptoms started initially about a week ago with gastroenteritis symptoms including vomiting, diarrhea and diffuse abdominal pain. She was seen by PCP on 06/08/18 and given a script for zofran. She reports that she took one dose of zofran but continued to have nausea and vomiting. Later that same day she began having acute left shoulder pain when she tried to get up from the couch. Since that time her left shoulder pain has continued, she has felt progressively weak and became disoriented. In the ED she was found to have significant leukocytosis, hyponatremia, elevated lactic acid, negative troponins, elevated bilirubin level and was admitted for IV fluids, antibiotics and further workup. This morning she reports that she is "not very well". Continues to have left shoulder pain that she rates 8/10, worse with certain positions but it is constant. She denies current abdominal pain, dysuria, blood in urine. She does endorse poor appetite and nausea but no emisis for at least 48 hours. Hospital Course Hospital Course: Patient admitted with sepsis. Initial labs concerning for elevated liver enzymes, acute kidney injury, leukocytosis, and found to have positive blood cultures and urine cultures for Proteus. Initially treated with Invanz, transition to Levaquin based on sensitivities. CT abdomen pelvis showed obstructing ureteral stone on right side. Urology consulted. Cystourethrogram performed along with cystoscopy and patient found to have no further retention of stone. Stent placed. With plan to remove after 72 hours, instructed to self remove on Tuesday. She had significant clinical improvement. Tolerating p.o. medication and nutrition. Normalization of kidney function with significant improvement in liver enzymes. Remained afebrile hemodynamically stable for greater than 48 hours. Discharged home with plan for close follow-up Objective Vital signs: Temp Pulse Resp BP Pulse Ox 97.4 F L 101 H 22 162/72 H 98 06/13/18 15:05 06/13/18 15:05 06/13/18 15:05 06/13/18 15:05 06/13/18 15:05 Narrative: - Constitutional no acute distress. Comfortable lying in bed, obese, cooperative - *Routine HEENT Exam Head: Present: atraumatic Eye: Present: PERRL, conjunctival icterus ENT: Present: mucous membranes moist, oropharynx clear - *Routine Neck Exam Present: supple. Absent: lymphadenopathy, tenderness, swelling - *Routine Respiratory Exam Present: CTA bilaterally - *Routine Cardiovascular Exam Present: RRR. Absent: murmur - *Routine Abdominal Exam Present: soft, normoactive bowel sounds. Absent: tenderness, distended, guarding - *Routine Extremities Exam Present: pulses intact, normal capillary refill; Left shoulder abduction to 90 degrees, painful internal and external rotation, nontender to palpation. No erythema or warmth - *Routine Skin Exam Present: intact, warm, normal turgor. Absent: pallor - *Routine Neurological Exam Present: alert, oriented X3 - *Routine HEENT Exam Head: Present: normocephalic, atraumatic Eye: Present: EOMI, PERRL ENT: Present: mucous membranes moist Results Labs on day of discharge: Labs from last 24 hours 06/13/18 06/13/18 06/13/18 16:47 13:53 11:04 WBC RBC Hgb Hct MCV MCH MCHC RDW Plt Count MPV Neut % (Auto) Lymph % (Auto) [place] % (Auto) Eos % (Auto) Baso % (Auto) Neut # (Auto) Lymph # (Auto) [place] # (Auto) Eos # (Auto) Baso # (Auto) Total Counted Neutrophils % (Manual) Lymphocytes % (Manual) Monocytes % (Manual) Platelet Estimate RBC Morphology Sodium Potassium Chloride Carbon Dioxide Anion Gap BUN Creatinine Estimated Creat Clear Estimated GFR Est GFR ( Amer) Glucose POC Glucose 269 H 255 H 247 H Calcium Total Bilirubin AST ALT Alkaline Phosphatase Total Protein Albumin Globulin Albumin/Globulin Ratio Hepatitis A IgM Ab Hep Bs Antigen Hep B Core IgM Ab Hepatitis C Antibody 06/13/18 06/13/18 06/13/18 06:33 06:33 05:56 WBC 15.5 H RBC 4.26 Hgb 10.7 L Hct 34.5 L MCV 80.9 L MCH 25.1 L MCHC 31.1 L RDW 14.9 Plt Count 102 L MPV 8.5 Neut % (Auto) 86.8 H Lymph % (Auto) 9.5 L [place] % (Auto) 3.2 Eos % (Auto) 0.3 Baso % (Auto) 0.2 Neut # (Auto) 13.4 H Lymph # (Auto) 1.5 [place] # (Auto) 0.5 Eos # (Auto) 0.1 Baso # (Auto) 0.0 Total Counted 100 Neutrophils % (Manual) 92 H Lymphocytes % (Manual) 5 L Monocytes % (Manual) 3 Platelet Estimate Slight decrease RBC Morphology Normal Sodium 130 L Potassium 4.4 Chloride 97 L Carbon Dioxide 21 Anion Gap 16.4 H BUN 26 H D Creatinine 0.83 D Estimated Creat Clear 118 Estimated GFR 73 Est GFR ( Amer) 88 D Glucose 300 H POC Glucose 278 H Calcium 7.9 L Total Bilirubin 2.3 H AST 7 L D ALT 20 Alkaline Phosphatase 255 H Total Protein 6.0 L Albumin 1.2 L Globulin 4.8 H Albumin/Globulin Ratio 0.3 L Hepatitis A IgM Ab Hep Bs Antigen Hep B Core IgM Ab Hepatitis C Antibody 06/12/18 06/12/18 21:29 04:45 WBC RBC Hgb Hct MCV MCH MCHC RDW Plt Count MPV Neut % (Auto) Lymph % (Auto) [place] % (Auto) Eos % (Auto) Baso % (Auto) Neut # (Auto) Lymph # (Auto) [place] # (Auto) Eos # (Auto) Baso # (Auto) Total Counted Neutrophils % (Manual) Lymphocytes % (Manual) Monocytes % (Manual) Platelet Estimate RBC Morphology Sodium Potassium Chloride Carbon Dioxide Anion Gap BUN Creatinine Estimated Creat Clear Estimated GFR Est GFR ( Amer) Glucose POC Glucose 292 H Calcium Total Bilirubin AST ALT Alkaline Phosphatase Total Protein Albumin Globulin Albumin/Globulin Ratio Hepatitis A IgM Ab Negative Hep Bs Antigen Negative Hep B Core IgM Ab Negative Hepatitis C Antibody 0.1 Preliminary micro results at discharge 06/11/18 16:50 Blood Culture - Preliminary Blood Gram Negative Rods 06/11/18 16:50 Blood Culture - Preliminary Blood Gram Negative Rods DS: Diagnosis - Discharge Diagnosis (1) Jaundice Status: Acute (2) Elevated bilirubin Status: Acute (3) Bacteremia Status: Acute (4) Acute UTI Status: Acute (5) Left shoulder pain Status: Acute (6) Hyponatremia Status: Acute (7) Lactic acidosis Status: Acute (8) Nausea & vomiting Status: Acute (9) Type 2 diabetes mellitus Status: Chronic (10) Hypothyroidism Status: Chronic (11) Sepsis Status: Acute Problem details: Due to gram-negative bryn bacteremia with initial source of urinary tract infection. Defervesced with Invanz treatment. Sensitivities and culture showed Proteus. Transition to Levaquin with plan for 14 days of treatment. Discharge Plan - Patient Discharge Instructions ACTIVITY: Continue current activity DIET: continue same diet Patient Instructions: DI for Diabetes Type 2, DI for Sepsis -- Adult - Follow up Plan Follow up with: Nick Kulkarni MD [Primary Care Provider] - 1 week Zac Padilla MD [Staff Physician] - (3 weeks) Disposition: Home, Self-Residential Medications: Home Medications Medication Instructions Recorded Confirmed Type Levothyroxine Sodium 75 mcg PO DAILY 06/11/18 06/12/18 History [Levothyroxine 75mcg (0.075mg) Tab] Simvastatin 40 mg PO HS 06/11/18 06/12/18 History Venlafaxine HCl [Effexor XR 75mg 75 mg PO DAILY 06/11/18 06/12/18 History capsule] Venlafaxine HCl [Venlafaxine HCl 150 mg PO DAILY 06/11/18 06/11/18 History ER] Lisinopril [Lisinopril 10mg Tab] 10 mg PO DAILY 06/12/18 06/12/18 History Metformin HCl 500 mg PO BID 06/12/18 06/12/18 History Prescriptions/Medication Reconciliation: New levoFLOXacin [Levaquin 750mg tablet] 750 mg PO 1100 11 Days #11 tablet Continue Simvastatin 40 mg PO HS Lisinopril [Lisinopril 10mg Tab] 10 mg PO DAILY Metformin HCl 500 mg PO BID Venlafaxine HCl [Venlafaxine HCl ER] 150 mg PO DAILY Levothyroxine Sodium [Levothyroxine 75mcg (0.075mg) Tab] 75 mcg PO DAILY Discontinued Venlafaxine HCl [Effexor XR 75mg capsule] 75 mg PO DAILY
[2018-06-14 06:52] LABS: Basophils % 0.2 % (0.1-2.0); Eosinophils # 0.1 K/mm3 (0.0-0.4); Eosinophils % 0.5 % (0.1-12.0); Hematocrit 35.7 % (37.0-47.0); Hemoglobin 10.9 g/dL (12.2-16.2); Lymphocytes % 7.2 % (10-50); Mean Corpuscular HGB Conc 30.5 g/dL (31.8-35.4); Mean Corpuscular Hemoglobin 25.3 pg (27.0-31.2); Mean Corpuscular Volume 82.7 fl (81-99); Mean Platelet Volume 8.2 fl (7.4-10.4); Monocytes # 0.4 K/mm3 (0.1-1.0); Monocytes % 2.6 % (1.7-9.3); Neutrophils # 12.6 K/mm3 (1.8-7.8); Neutrophils % 89.6 % (37.0-80.0); Platelet Count 150 K/mm3 (142-424); Red Blood Count 4.32 M/mm3 (4.20-5.40); Red Cell Distribution Width 14.9 % (11.5-17.5)
[2018-06-14 07:01] LABS: Albumin Level 1.3 gm/dL (3.4-5.0); Albumin/Globulin Ratio 0.3 (1.1-1.8); Anion Gap 13.5 mEq/L (5-15); Bilirubin,Total 1.6 mg/dL (0.2-1.0); Calcium 7.9 mg/dL (8.5-10.1); Globulin 5.1 gm/dl (1.3-3.2); Potassium 4.5 mmoL/L (3.5-5.1); Total Protein,Serum 6.4 gm/dL (6.4-8.2)
[2018-06-14 08:32] LABS: Hypochromasia 1+; Lymphocytes % 5 % (10-50); Monocytes % 2 % (2-9); Neutrophils % 93 % (42-76); Stomatocytes 1+; Total Cells Counted 100
== END 2018-06-14 16:25 | disposition home or self-care (01) ==
LOC: ICU 16:22 → ER 16:22 → OBSVTOIN 20:49 → ICU 20:50 → 2ND 06-12 16:04
PROVIDERS: ADMIT Family Medicine; ATTEND Internal Medicine Adolescent Medicine

== ENCOUNTER → 2018-06-20 16:30 | Outpatient (CLI) | payer OTHER, SELFPAY ==
--- NOTE | 2018-06-20 | NVE_ITS ---
Venous Exam Indications: 729.81 Swelling of limb. IMPRESSIONS No evidence of deep or superficial vein thrombosis involving the right lower extremity and left lower extremity History: Swelling of both lower extremities. Varicose veins of the left lower extremity. Risk factors: Hypertension. Hypercoagulable state due to hormone replacement therapy. Renal disease. Patient had a stent placed in right kidney due to renal calculi 06/11/18 under anesthesia. Left lower extremity venous duplex evaluation. Doppler flow study including spectral analysis, color and melendez scale imaging. Location: Vascular laboratory. Patient status: Outpatient. CRITICAL FINDINGS - Reported to: MONIQUE Masterson - Read back and verified. - 06/20/18 - 17:15 - Bilateral venous dopplers negative for DVT or SVT Tables: Venous flow and imaging: + +-------+ + Location Overall Flow properties + +-------+ + Right common femoral Patent Normal phasicity; spontaneous; normal augmentation; compressible + +-------+ + Right saphenofemoral junction Patent Compressible + +-------+ + Right profunda femoral Patent Compressible + +-------+ + Right femoral Patent Normal phasicity; spontaneous; normal augmentation; compressible; no reflux + +-------+ + Right greater saphenous Patent Normal phasicity; spontaneous; normal augmentation; compressible + +-------+ + Right popliteal Patent Normal phasicity; spontaneous; normal augmentation; compressible + +-------+ + Right posterior tibial Patent Compressible + +-------+ + Right peroneal Patent Compressible + +-------+ + Right gastrocnemius Patent Compressible + +-------+ + Right soleal Patent Compressible + +-------+ + Left common femoral Patent Normal phasicity; spontaneous; normal augmentation; compressible + +-------+ + Left saphenofemoral junction Patent Compressible + +-------+ + Left profunda femoral Patent Compressible + +-------+ + Left femoral Patent Normal phasicity; spontaneous;
== END ==
PROVIDERS: PCP Internal Medicine Adolescent Medicine; Visit Provider Internal Medicine Adolescent Medicine
DX: R60.0 Localized edema (principal)
CPT/HCPCS: 93970

== ENCOUNTER → 2018-10-18 08:21 | Outpatient (CLI) | payer SELFPAY ==
--- NOTE | 2018-10-18 08:28 | US_ITS ---
US abdomen limited History:Right upper quadrant pain with nausea and vomiting Ordering Physician:Toni Espinoza MD Patient Age: 48 years Comparison:None Findings: Pancreas:Unremarkable. No obvious mass or abnormal fluid collection. No ductal dilatation Liver:Unremarkable. No obvious mass or abnormal fluid collection. No ductal dilatation. There is appropriate direction of blood flow within a nondilated portal vein Right Kidney:Unremarkable. Normal size and echogenicity. No hydronephrosis Gallbladder:Status post cholecystectomy. Common bile duct is normal at 4 mm. Impression: Postcholecystectomy. No ductal dilatation. Otherwise negative right upper quadrant ultrasound
== END ==
PROVIDERS: PCP Internal Medicine Adolescent Medicine; Visit Provider Internal Medicine Adolescent Medicine
DX: R10.13 Epigastric pain (principal)
CPT/HCPCS: 76705

== ENCOUNTER → 2019-02-22 09:12 | Outpatient (CLI) | payer OTHER, SELFPAY ==
--- NOTE | 2019-02-22 09:16 | US_ITS ---
US Arterial Lower Ext Rest History: Pain within the lower legs and feet ORDERING PHYSICIAN: Eva Montanez APRN PATIENT AGE: 48 years TECHNIQUE: Segmental pressures obtained of both right and left leg. These are compared to brachial blood pressure to yield index at each level sampled including summary DK. The data sheets from the procedure are available in PACS FINDINGS Rest study only performed today No prior studies available for comparison. Blood pressures reported are in millimeters mercury. RIGHT LEG DK = 1.6. RIGHT LEG TBI=.8 Brachial BP: 116 Thigh BP: 148 Calf BP: 177 Ankle PT: 184 Ankle DP : 171 Digit =97 LEFT LEG DK = 1.3 LEFT LEG TBI= .9 Brachial BPD: 114 Thigh BP: 150 Calf BP: 180 Ankle PT:147 Ankle DP: 140 Digit = 106 Pulses and waveforms: Normal IMPRESSION: The right DK is elevated at 1.6. This may be seen with hardening/calcification of the arteries. The left DK and TBI are unremarkable.
== END ==
PROVIDERS: PCP Nurse Practitioner Family; Visit Provider Nurse Practitioner Family
DX: I70.213 Atherosclerosis of native arteries of extremities with intermittent claudication, bilateral legs (principal)
CPT/HCPCS: 93923

== ENCOUNTER 2019-08-31 08:00 | Outpatient (RCR) | payer OTHER, SELFPAY | END 2019-08-31 08:05 | disposition home or self-care (01) | LOC: PT 08:00 | PROVIDERS: Visit Provider Thoracic Surgery (Cardiothoracic Vascular Surgery) | DX: S21.101A Unspecified open wound of right front wall of thorax without penetration into thoracic cavity, initial encounter (principal) | CPT/HCPCS: 97162 ==

== ENCOUNTER → 2020-08-04 13:32 | Outpatient (CLI) | payer OTHER, SELFPAY ==
--- NOTE | 2020-08-04 13:34 | CA_ITS ---
APPROVED REPORT EXAM: Comprehensive 2D, Doppler, and color-flow Echocardiogram Project Control Analyst: SHAGU[employer] Ht: 5 ft 4 in Wt: 268lbs BSA: 2.22 BP: 152/86 mmHg Indications: cabgx4-1yr ago, abn ekg, soa, edema Echo Enhancing Agent Comments: Technically difficult exam due to extreme body habitus. 2D Dimensions LVOT 1.90 cm (M/F) 1.5-2.5 M-Mode Dimensions LA Diam 4.59 cm (1.9-4.0) LVDd 5.13 cm (3.5-5.7) Ao Diam 2.94 cm (2.0-3.7) LVDs 3.54 cm (3.5-5.7) EF (Teich) 65.10% EPSs 0.36 cm FS 35.90% EDV (Teich) 125.50 mL ESV (Teich) 43.80 mL LV Diastology E Decel Time 140.00 (160-240 msec) E/A Ratio 2.41 MED E' 5.40 (< 7 cm/sec) MED A' 4.00 cm/s E'/MED E' Ratio 22.41 (>14) LAT E' 8.30 (<10 cm/sec) LAT A' 5.20 cm/s E/LAT E' Ratio 14.58 (>14) Aortic Valve AoV Peak Good. 127.00 (50-130 cm/s) AO Peak GR. 6.40 mmHg AO Mean GR. 3.40 (<5 mmHg) AO VTI 22.77 (18-25 cm) Mitral Valve MV A Velocity 50.00 (40-130 cm/s) E/A Ratio 2.41 MV Decel. Time 140.00 (160-240 ms) Tricuspid Valve TR P. Velocity 264.00 cm/s RAP Estimate 10.00 mmHg RVSP 38.00 mmHg Left Ventricle Left atrium is mildly enlarged, left ventricle is normal size, mild concentric left ventricular hypertrophy, visually estimated ejection fraction 55% with no obvious regional wall motion abnormality, endocardial surfaces are very poorly visualized, a repeat study with Definity contrast is recommended. Grade 2 diastolic dysfunction seen with tissue Doppler evidence of raise left atrial pressure. Right Ventricle Right atrium and right ventricle are mildly enlarged with normal contractility. Aortic Valve Aortic valve is minimally thickened and fibrosed, there is no aortic stenosis or aortic insufficiency. Mitral Valve Mitral valve is grossly normal, there is mild mitral regurgitation. Tricuspid Valve Tricuspid valve grossly normal, there is mild tricuspid regurgitation, tricuspid regurgitation jet velocity is inadequate for calculation of the right ventricular systolic pressure. Pulmonic Valve Pulmonic valve is poorly visualized. Great Vessels Aortic root is normal size. Pericardium No significant pericardial effusion noted Conclusion 1. Mild biatrial enlargement, normal left ventricular size, mild concentric left ventricular hypertrophy, visually estimated ejection fraction 55%, grade 2 diastolic dysfunction seen with tissue Doppler evidence of raise left atrial pressure, endocardial surfaces are poorly visualized, repeat study with Definity contrast is recommended. 2. Mildly enlarged right ventricle with normal contractility. 3. Mild mitral and tricuspid regurgitation. 4. No significant pericardial effusion noted. Electronically signed by : Jose Pdailla, 08/05/2020 06:04:19
[2020-08-04 15:28] LABS: Anion Gap 12.6 mEq/L (5-15); Blood Urea Nitrogen 28 mg/dl (7-17); Calcium 9.6 mg/dl (8.4-10.2); Carbon Dioxide 36 mmol/L (22.0-30.0); Chloride 90 mmol/L (98-107); Estimated Glomerular Filt Rate 66 ml/min (>60); GFR (African American) 80 ML/MIN (>60); Potassium 4.6 mmoL/L (3.5-5.1); Sodium 134 mmol/L (136-145)
[2020-08-04 15:37] LABS: Glucose 527 mg/dl (74-100)
[2020-08-04 15:39] LABS: NT Pro Brain Natriuretic Pep. 1710 pg/mL (0-125)
== END ==
PROVIDERS: PCP Internal Medicine Adolescent Medicine; Visit Provider Nurse Practitioner Family
DX: R06.00 Dyspnea, unspecified (principal); R60.9 Edema, unspecified; E11.9 Type 2 diabetes mellitus without complications; E78.2 Mixed hyperlipidemia; I10 Essential (primary) hypertension; I25.810 Atherosclerosis of coronary artery bypass graft(s) without angina pectoris; R94.31 Abnormal electrocardiogram [ECG] [EKG]; Z95.1 Presence of aortocoronary bypass graft; Z79.84 Long term (current) use of oral hypoglycemic drugs
CPT/HCPCS: 36415; 80048; 83880; 93306

== ENCOUNTER → 2020-08-04 14:40 | Outpatient (CLI) | payer OTHER, SELFPAY | PROVIDERS: Visit Provider Nurse Practitioner Family | DX: R06.00 Dyspnea, unspecified (principal) | CPT/HCPCS: 36415; 80048; 83880 ==

== ENCOUNTER → 2020-12-24 15:40 | Outpatient (CLI) | payer OTHER, SELFPAY ==
[2020-12-24 16:18] LABS: Basophils # 0.1 K/mm3 (0-0.2); Basophils % 0.7 % (0.1-2.0); Eosinophils # 0.2 K/mm3 (0.0-0.4); Eosinophils % 2.8 % (0.1-12.0); Hematocrit 43.6 % (37.0-47.0); Hemoglobin 13.9 g/dL (12.2-16.2); Lymphocytes # 1.1 K/mm3 (0.7-4.5); Mean Corpuscular HGB Conc 31.9 g/dL (31.8-35.4); Mean Platelet Volume 8.8 fl (7.4-10.4); Monocytes # 0.5 K/mm3 (0.1-1.0); Monocytes % 7.9 % (1.7-9.3); Neutrophils # 4.9 K/mm3 (1.8-7.8); Neutrophils % 72.6 % (37.0-80.0); Platelet Count 203 K/mm3 (142-424); Red Blood Count 4.79 M/mm3 (4.20-5.40); White Blood Count 6.7 K/mm3 (4.8-10.8)
[2020-12-24 17:19] LABS: Alanine Aminotransferase 20 U/L (12-78); Albumin Level 3.6 g/dl (3.5-5.0); Albumin/Globulin Ratio 1.4 (1.1-1.8); Alkaline Phosphatase 115 U/L (38-126); Anion Gap 12.3 mEq/L (5-15); Aspartate Amino Transferase 18 U/L (14-36); Bilirubin,Total 0.8 mg/dl (0.2-1.3); Blood Urea Nitrogen 25 mg/dl (7-17); Calcium 8.9 mg/dl (8.4-10.2); Carbon Dioxide 28 mmol/L (22.0-30.0); Chloride 94 mmol/L (98-107); Estimated Glomerular Filt Rate 52 ml/min (>60); GFR (African American) 63 ML/MIN (>60); Globulin 2.5 g/dL (1.3-3.2); Magnesium 1.7 mg/dl (1.6-2.3); Potassium 5.3 mmoL/L (3.5-5.1); Sodium 129 mmol/L (136-145); Total Protein,Serum 6.1 g/dl (6.3-8.2)
[2020-12-24 17:55] LABS: Thyroid Stimulating Hormone 5.84 uIU/mL (0.465-4.68)
[2020-12-24 19:09] LABS: Hemoglobin A1C > 14.0 % (4.0-6.0)
[2020-12-24 19:54] LABS: Glucose 742 mg/dl (74-100)
== END ==
PROVIDERS: Visit Provider Nurse Practitioner Family
DX: E11.40 Type 2 diabetes mellitus with diabetic neuropathy, unspecified (principal); E03.9 Hypothyroidism, unspecified; I10 Essential (primary) hypertension; I87.2 Venous insufficiency (chronic) (peripheral)
CPT/HCPCS: 80053; 83036; 83735; 84443; 85025

== ENCOUNTER → 2020-12-31 13:54 | Outpatient (CLI) | payer OTHER, SELFPAY ==
[2020-12-31 14:17] LABS: Chloride 86 mmol/L (98-107); Sodium 129 mmol/L (136-145)
[2020-12-31 14:20] LABS: Anion Gap 15.8 mEq/L (5-15); Blood Urea Nitrogen 35 mg/dl (7-17); Carbon Dioxide 32 mmol/L (22.0-30.0); Estimated Glomerular Filt Rate 47 ml/min (>60); GFR (African American) 57 ML/MIN (>60); Potassium 4.8 mmoL/L (3.5-5.1)
[2020-12-31 14:21] LABS: Calcium 9.1 mg/dl (8.4-10.2)
[2020-12-31 14:26] LABS: Glucose 504 mg/dl (74-100)
== END ==
PROVIDERS: Visit Provider Nurse Practitioner Family
DX: E11.65 Type 2 diabetes mellitus with hyperglycemia (principal); E87.5 Hyperkalemia; Z79.84 Long term (current) use of oral hypoglycemic drugs
CPT/HCPCS: 80048

== ENCOUNTER 2021-05-27 13:26 | Inpatient (IN) | payer OTHER, SELFPAY ==
[2021-05-27 13:26] VITALS: BP 172/108; PULSE 84; RESP 16; TEMP 36.8; O2SAT 98; BMI 26.6
--- NOTE | 2021-05-27 13:53 | CT_ITS ---
PROCEDURE: CT HEAD/BRAIN WO CON CLINICAL INDICATION: AMS COMPARISON: CT HEADWO CT head/brain wo con from 06/11/2018 TECHNIQUE: Axial images obtained. All CT scans at the facility use one or more dose reduction, viz: automated exposure control, ma/kV adjustment per patient size (including targeted exams where dose is matched to indication, i.e. head), or iterative reconstruction technique. FINDINGS: No midline shift or mass effect is evident. There is overall asymmetric increased density with slight enlargement of the choroid plexus on the left compared to the right side. This has developed since the previous exam. No layering acute intraventricular hemorrhage is evident. No hydrocephalus. There is calcification of the falx anteriorly lobular in nature not significantly changed. Frothy density noted in the right frontal sinus. IMPRESSION: 1. Asymmetric increased prominence with slight hyperdensity of the choroid plexus of the left lateral ventricle. This is nonspecific. Cannot exclude the possibility of hemorrhage within the choroid plexus on the left although extremely rare versus xanthogranulomatous changes. Suggest short-term follow-up in 12-24 hours to confirm short term stability. 2. Otherwise negative. Dictated by: Brandon Tracy MD 05/27/2021 14:56 Brandon Tracy MD in [facility] 05/27/2021 14:56
--- NOTE | 2021-05-27 13:55 | HMH.EDGENADL ---
ED Disposition Clinical Impression: Hyperosmolar hyperglycemic state (HHS) Altered mental status Qualifiers: Altered mental status type: unspecified Qualified Code(s): R41.82 - Altered mental status, unspecified Disposition: Admitted as Observation Condition on Discharge: Serious - Critical Care Critical Care Time: Yes Attestation: On 05/27/21, the high probability of a clinically significant, sudden or life threatening deterioration of the following system(s) required my full and direct attention, intervention and personal management. The time I documented below is in addition to time spent performing reported procedures but includes the following listed in this critical care notation. Total Critical Care Time: 35 Vital system(s) involved:: Metabolic Failure My critical care processes included: Assessment & monitoring of V/S, Initial and Re-exams, Data Review/Interpretation, Coordinating Care, Medication Orders and management, Documentation Medical Decision Making - Alphonso Inquiry Pt receiving controlled substance: No Vital Signs: 05/27/21 13:26 05/27/21 14:06 05/27/21 16:25 Temperature 98.3 F Temperature Source Oral Pulse Rate 104 H 107 H Pulse Rate [Right] 84 Respiratory Rate 16 16 Blood Pressure 180/94 H 125/81 Blood Pressure [Right Arm] 172/108 H Blood Pressure Mean [Right Arm] 129 Blood Pressure Source Automatic Cuff Blood Pressure Source [Right Arm] Automatic Cuff Blood Pressure Position Sitting Blood Pressure Position [Right Arm] Sitting 02 Sat by Pulse Oximetry 98 94 L 97 Oxygen Delivery Method Room Air Room Air 05/27/21 16:26 05/27/21 16:44 Temperature 98.3 F 97.9 F Temperature Source Oral Oral Pulse Rate 106 H Pulse Rate [Right] 84 Respiratory Rate 16 17 Blood Pressure 125/80 Blood Pressure [Right Arm] 144/72 H Blood Pressure Mean [Right Arm] 96 Blood Pressure Source Automatic Cuff Blood Pressure Source [Right Arm] Automatic Cuff Blood Pressure Position Sitting Blood Pressure Position [Right Arm] Supine 02 Sat by Pulse Oximetry 97 Oxygen Delivery Method Room Air Room Air - Lab Data Lab Results 05/27/21 14:00: Sodium 127 L, Potassium 4.4, Chloride 86 L, Carbon Dioxide 30, Anion Gap 15.4 H, BUN 16, Creatinine 0.90, Estimated GFR 66, Est GFR ( Amer) 80, Glucose 792 H*, Calcium 9.4, Total Bilirubin 1.1, AST 33, ALT 26, Alkaline Phosphatase 133 H, Troponin I < 0.01, Total Protein 7.4, Albumin 4.2, Globulin 3.2, Albumin/Globulin Ratio 1.3 05/27/21 14:00: Plasma/Serum Alcohol < 10 05/27/21 14:00: TSH 3.93, Acetone Level None detected 05/27/21 14:08: VBG pH 7.36, VBG pCO2 49.4, VBG pO2 39.0, VBG HCO3 27.3, VBG Total CO2 28.8 H, VBG O2 Saturation 73.7 H, VBG Base Excess 1.8 05/27/21 15:26: Urine Color Straw, Urine Appearance Clear, Urine pH 5.5, Ur Specific [place] 1.015, Urine Protein Negative, Urine Glucose (UA) 3+, Urine Ketones Negative, Urine Blood Trace-i, Urine Nitrate Negative, Urine Bilirubin Negative, Urine Urobilinogen 0.2, Ur Leukocyte Esterase Negative, Urine RBC 5-10, Urine WBC 3-5, Ur Squamous Epith Cells Occasional, Urine Bacteria Trace 05/27/21 15:26: Urine Opiates Screen Negative, Urine Methadone Screen Negative, Ur Barbituates Screen Negative, Ur Phencyclidine Scrn Negative, Ur Amphetamines Screen Negative, U Benzodiazepines Scrn Negative, Urine Cocaine Screen Negative, U Marijuana (THC) Screen Negative 05/27/21 15:40: SARS-CoV-2 (PCR) Not detected, Influenza A Untype (PCR) Not detected, Influenza Type B (PCR) Not detected Result diagrams: 05/27/21 16:20 05/27/21 14:00 Orders (Tests/Meds): ED MEDICATIONS Generic Name Dose Route Start Last Admin Trade Name Freq PRN Reason Stop Dose Admin Acetaminophen 650 mg 05/27/21 16:21 Acetaminophen 325mg Tab PO 06/26/21 16:20 Q4HP PRN Fever or Mild Pain Sodium Chloride 1,000 mls @ 200 mls/hr 05/27/21 16:21 05/27/21 16:33 Sod Chlor 0.9% 1000ml Bag IV 06/26/21 16:20 200 mls
--- NOTE | 2021-05-27 13:58 | PC.NURSE ---
pt to rad.
[2021-05-27 14:06] VITALS: BP 180/94; PULSE 104; O2SAT 94
--- NOTE | 2021-05-27 14:09 | XR_ITS ---
PROCEDURE: XR CHEST PORTABLE CLINICAL HISTORY: AMS COMPARISON: CR CXR2V XR chest 2V from 06/11/2018 FINDINGS: Borderline cardiomegaly without failure. There has been a prior median sternotomy/CABG. The lungs are clear without infiltrates, suspicious nodules, or pleural effusions. Calcified granuloma right lower lobe. No acute bony findings. IMPRESSION: No acute findings. Dictated by: Brandon Tracy MD 05/27/2021 14:45 Brandon Tracy MD in [facility] 05/27/2021 14:45
[2021-05-27 14:29] LABS: Chloride 86 mmol/L (98-107); Potassium 4.4 mmoL/L (3.5-5.1); Sodium 127 mmol/L (136-145)
[2021-05-27 14:31] LABS: Blood Urea Nitrogen 16 mg/dl (7-17); Estimated Glomerular Filt Rate 66 ml/min (>60); GFR (African American) 80 ML/MIN (>60)
[2021-05-27 14:32] LABS: Alanine Aminotransferase 26 U/L (12-78); Albumin Level 4.2 g/dl (3.5-5.0); Albumin/Globulin Ratio 1.3 (1.1-1.8); Alkaline Phosphatase 133 U/L (38-126); Anion Gap 15.4 mEq/L (5-15); Aspartate Amino Transferase 33 U/L (14-36); Bilirubin,Total 1.1 mg/dl (0.2-1.3); Calcium 9.4 mg/dl (8.4-10.2); Carbon Dioxide 30 mmol/L (22.0-30.0); Globulin 3.2 g/dL (1.3-3.2); Total Protein,Serum 7.4 g/dl (6.3-8.2)
--- NOTE | 2021-05-27 14:34 | PC.NURSE ---
8 mins till chemistry is fully resulted
--- NOTE | 2021-05-27 14:39 | PC.NURSE ---
Pt back to rad.
--- NOTE | 2021-05-27 14:42 | CT_ITS ---
Procedure: CT ANGIO NECK CT ANGIO HEAD CLINICAL HISTORY: intermittent expressive aphasia COMPARISON: CT CT HEAD/BRAIN WO CON from 05/27/[address] ANGIO HEAD from 05/27/2021 TECHNIQUE: IV Contrast: 100ml Isovue 370 Axial images obtained with sagittal and coronal reformats. All CT scans at the facility use one or more dose reduction, viz: automated exposure control, ma/kV adjustment per patient size (including targeted exams where dose is matched to indication, i.e. head), or iterative reconstruction technique. FINDINGS: CTA neck: The aortic arch has an unremarkable appearance as do the great vessels. The right common carotid and internal carotid artery have an unremarkable appearance. Unremarkable appearing left common carotid artery and internal carotid. A shallow ulcer is present in the left carotid bulb at the ostium of the left external carotid artery with mild atheromatous changes at the carotid bulb. No significant stenotic lesions evident. No evidence of carotid dissection. No vertebral stenosis or dissection. The right vertebral is dominant. CTA head: There is persistent origin the right posterior cerebral artery.. There is minimal atheromatous calcific plaque in the cavernous portion the carotids. The right carotid, anterior cerebral artery, and middle cerebral artery have an unremarkable appearance. There is drastic change in caliber involving the anterior clinoid portion of the left internal carotid artery best demonstrated on 407. There is approximately 64 percent stenosis at this region with the internal carotid assuming is normal size in the supraclinoid region.. This reduction in size could be related to an area of atherosclerotic stenosis. There also could be a eccentric thrombus at this area.. The left anterior cerebral and middle cerebral arteries have an unremarkable appearance. Persistent origin noted of the right posterior cerebral artery. The left posterior cerebral artery originates from the basilar artery. No aneurysm or dissection apparent. There has been a prior CABG. There is some nonspecific ground-glass attenuation of the upper lobes.. Post enhanced images of the brain shows no evidence of midline shift or mass effect. A small enhancing lesion is present in the right frontal lobe medially and somewhat posteriorly along the falx measuring approximately 3 mm. IMPRESSION: 1. Negative CTA of the neck aside from a shallow ulcer in the left carotid bulb at the ostium of the left external carotid artery. 2. Focal moderate to high grade stenosis of 64 percent involving the clinoid portion of the left internal carotid artery. 3. 3 mm enhancing focus right frontal lobe medially etiology indeterminate. Follow-up suggested. Dictated by: Brandon Tracy MD 05/27/2021 15:49 Brandon Tracy MD in [facility] 05/27/2021 15:49
--- NOTE | 2021-05-27 14:42 | PC.NURSE ---
Pt back to rad
--- NOTE | 2021-05-27 14:43 | PC.NURSE ---
pt was sent over from PCP after c/o memory loss and advising she has been forgetting things for 4 1/2 weeks. I went in to assess patient and she starts explaining to me what has been going on and that she thinks she has been seeing things that aren't there and having visions. Pt then begins talking and is not making sense, she can not tell me where she is, her name, or answer basic questions. She is just saying words that aren't making any sense. MD comes to the bedside, and pt is able to answer all questions and is A&O times 4. Notified rad of stroke protocol. MD left bedside and pt started talking abnormal again. PT went to CT and when she returns I take the [facility] packet in and ask pt to read the sentences, pt is unable to read them correctly and just starts saying random words. MD comes to bedside, starts pointing at objects and pt is able to answer correctly besides calling a watch a phone . Then showed pictures to patient and she would say that she didn't know exactly what it was called or would say some random word that did not make sense. After a few moments pt was able to read 3 sentences but that was it. Pt was going back to CT for repeat head and CTA's. [ End ]
[2021-05-27 14:44] LABS: Glucose 792 mg/dl (74-100); Troponin I < 0.01 ng/ml (0.00-0.034)
--- NOTE | 2021-05-27 14:45 | PC.NURSE ---
notified ER of critical glucose on pt as called by lab
[2021-05-27 14:52] LABS: Ethyl Alcohol < 10 mg/dl (0-10)
[2021-05-27 15:13] LABS: Acetone, Serum (Rapid) None Detected (None Detect)
--- NOTE | 2021-05-27 15:14 | ECG_ITS ---
APPROVED REPORT Exam: Resting ECG HR:104 bpm ECG Measurements Heart Rate 104 AXES OK 182 P 35 QRSd 86 QRS 3 QT 370 T 61 QTc 486 Conclusion Sinus tachycardia Left atrial enlargement Late r wave progressiion Abnormal ECG Electronically signed by : Nick Kulkarni MD 05/27/2021 21:31:48
--- NOTE | 2021-05-27 15:15 | PC.NURSE ---
waiting charge preparation technician back from Dr. Kulkarni
[2021-05-27 15:21] LABS: Thyroid Stimulating Hormone 3.93 uIU/mL (0.465-4.68)
--- NOTE | 2021-05-27 15:25 | PC.NURSE ---
OMAR HAMMOND spoke with DR. Kulkarni
[2021-05-27 15:26] LABS: VBG Base Excess 1.8 mmol/L (-2.4-2.3); VBG HCO3 27.3 mmol/L (23-30); VBG Oxygen Saturation 73.7 % (50-70); VBG PCO2 49.4 mmol/L (35-51); VBG PH 7.36 mmol/L (7.31-7.41); VBG Total CO2 28.8 mmol/L (23-27)
--- NOTE | 2021-05-27 15:30 | PC.NURSE ---
Pt up to restroom and was able to ambulate, when she returned back to room pt requested to sit in chair at the bedside and not be hooked up to vitals at this time. Agreeable to let pt do this. Niece at bedside also at this time.
--- NOTE | 2021-05-27 15:34 | PC.NURSE ---
notified general warehouse worker of admission.
[2021-05-27 15:35] LABS: Microscopic, Urine URINE MICROSCOPIC (MICROSCOPIC)
[2021-05-27 15:47] LABS: Coronavirus 19, PCR Not Detected (NotDetected); Influenza A, PCR Not Detected (NotDetected); Influenza B, PCR Not Detected (NotDetected)
[2021-05-27 15:50] LABS: Amphetamine/Metha Screen,Urine Negative ng/ml (<1000); Barbiturates Screen,Urine Negative ng/ml (<200)
[2021-05-27 15:51] LABS: Benzodiazepines Screen,Urine Negative ng/ml (<200)
[2021-05-27 15:52] LABS: Cannabinoid Screen,Urine Negative ng/ml (<50); Cocaine Screen,Urine Negative ng/ml (<300)
[2021-05-27 15:53] LABS: Methadone Screen,Urine Negative ng/ml (<300)
[2021-05-27 15:54] LABS: Opiate Screen,Urine Negative ng/ml (<300); Phencyclidine Screen,Urine Negative ng/ml (<25)
--- NOTE | 2021-05-27 16:02 | PC.NURSE ---
OMAR HAMMOND speaking with Dr. Kulkarni again at this time
[2021-05-27 16:06] LABS: Appearance,Urine CLEAR (Clear); Bilirubin,Urine Negative (Negative); Blood, Urine TRACE-I (Negative); Color,Urine STRAW (Yellow); Glucose,Urine (UA) 3+ (Negative); Ketones,Urine Negative (Negative); Leukocyte Esterase,Urine Negative (Negative); Nitrate,Urine Negative (Negative); PH,Urine 5.5 (5.0-8.5); Protein,Urine Negative (Negative); Specific Gravity, Urine 1.015 (1.005-1.030); Urobilinogen,Urine 0.2 EU/dl (0.2)
--- NOTE | 2021-05-27 16:07 | PC.NURSE ---
fsbs still reading hi on glucometer.
[2021-05-27 16:24] LABS: Bacteria,Urine Trace /lpf; Squamous Epithelial Cell,Urine Occasional #/hpf (0-5)
[2021-05-27 16:25] VITALS: BP 125/81; PULSE 107; RESP 16; O2SAT 97
--- NOTE | 2021-05-27 16:25 | PC.NURSE ---
Received report from Coni Vance RN @ [phone]. Awaiting results for covid swab.
[2021-05-27 16:26] VITALS: BP 125/80; PULSE 106; RESP 16; TEMP 36.8; O2SAT 98
--- NOTE | 2021-05-27 16:28 | PC.NURSE ---
Med rec not completed due to pt not knowing medicines and family advises that pt is noncompliant with medications as far as they know.
[2021-05-27 16:34] LABS: Basophils # 0.1 K/mm3 (0-0.2); Basophils % 0.9 % (0.1-2.0); Eosinophils # 0.2 K/mm3 (0.0-0.4); Eosinophils % 2.2 % (0.1-12.0); Hematocrit 46.3 % (37.0-47.0); Hemoglobin 14.8 g/dL (12.2-16.2); Lymphocytes # 1.2 K/mm3 (0.7-4.5); Lymphocytes % 15.6 % (10-50); Mean Corpuscular HGB Conc 31.9 g/dL (31.8-35.4); Mean Corpuscular Hemoglobin 26.4 pg (27.0-31.2); Mean Corpuscular Volume 82.7 fl (81-99); Mean Platelet Volume 8.5 fl (7.4-10.4); Monocytes # 0.7 K/mm3 (0.1-1.0); Monocytes % 8.7 % (1.7-9.3); Neutrophils # 5.4 K/mm3 (1.8-7.8); Neutrophils % 72.6 % (37.0-80.0); Platelet Count 247 K/mm3 (142-424); Red Cell Distribution Width 14.2 % (11.5-17.5); White Blood Count 7.5 K/mm3 (4.8-10.8)
--- NOTE | 2021-05-27 16:38 | PC.NURSE ---
pt arrived to the floor at this time via wheelchair
[2021-05-27 16:44] VITALS: BP 144/72; PULSE 84; RESP 17; TEMP 36.6; O2SAT 97; BMI 38.8
[2021-05-27 16:50] LABS: Glucose,Random 486 mg/dL (74-100)
[2021-05-27 17:55] LABS: POC Glucose,Bedside 533 (70-110)
[2021-05-27 21:08] LABS: POC Glucose,Bedside 356 (70-110)
--- NOTE | 2021-05-27 21:21 | HMH.HP ---
*Admission Date: 05/27/21 *Chief complaint: Altered mental status *History of present illness: 50-year-old white female diabetic with a long history of medical noncompliance who presented to the office today with a chief complaint of just feeling unwell. She was found to be in significant confusion state with difficulty word finding, disorientation and tachycardia and evidence of dehydration. Once arrangements were made for her nephew, who is in her custody to be taken care of by family member she was transferred to the emergency department. Work-up was noted. Family reports that she is not been compliant with her medications and for the last 3 or 4 weeks has been extremely confused when they talk to her but is refused to go to the physician's office. In the ER she was found to have significant hyperglycemia, evidence of hyperosmolar changes but was not acidotic. Diagnosis of hyperosmolar mental status changes were made. CT scan showed some interesting but obscure findings which I do not feel are causing her mental status change. No evidence of stroke disease. Note the patient states that she takes all of her medicines and I do not know why my family would say that. [facility] History I have reviewed the patient's past medical history: Yes Medical History: Reports:: Anxiety, Depression, Diabetes Mellitus Type 2, Hyperlipidemia, Hypertension *Have you ever received a pneumonia vaccine?: No *Have you received a flu vaccine this season?: No Other Medical History: Reports: Hypothyroidism, Thyroid Disease Other Surgeries: Yes: Appendectomy, Cholecystectomy, Hysterectomy-Total Amputation: No Fractures: No - *Social History Smoking Status: Former smoker Alcohol Intake: never Substance Use Type: denies use *Occupational Status:: employed Household Members: family, children *Travel in the last 8 weeks: None - Psychiatric History Pschychiatric History:: Reports:: Anxiety, Depression Family Hx:: Coronary Artery Disease, Diabetes Review of Systems - Review of Systems Review of systems:: unable to obtain - *Neurologic Reports memory loss, Denies headache(s) Meds Home Medications Medication Instructions Recorded Confirmed Type Venlafaxine HCl [Venlafaxine HCl 150 mg PO DAILY 06/11/18 07/28/20 History ER] Metformin HCl 500 mg PO BID 06/12/18 07/28/20 History aspirin 81 mg tablet,delayed 81 mg PO DAILY 06/04/19 07/28/20 History release atorvastatin 40 mg tablet 40 mg PO QHS tab 06/04/19 07/28/20 History glimepiride 4 mg tablet 4 mg PO DAILY 06/04/19 07/28/20 History levothyroxine 75 mcg tablet 100 mcg PO DAILY tab 06/04/19 07/28/20 History bupropion HCl 150 mg 24 hr tablet, 150 mg PO DAILY tab 07/28/20 07/28/20 History extended release furosemide 40 mg tablet 40 mg PO BID tab 07/28/20 07/28/20 History gabapentin 300 mg capsule 600 mg PO Q8H cap 07/28/20 07/28/20 History metoprolol succinate 50 mg See Rx Instructions .ROUTE 01/23/21 Rx tablet,extended release 24 hr .COMPLEX #90 tab spironolactone 50 mg tablet See Rx Instructions .ROUTE 01/23/21 Rx .COMPLEX #90 tab Allergies Allergy/AdvReac Type Severity Reaction Status Date / Time No Known Allergies Allergy Verified 07/28/20 13:09 Exam Vital signs and Labs for Last 24 Hours: Temp Pulse Resp BP Pulse Ox 97.9 F 84 17 144/72 H 97 05/27/21 16:44 05/27/21 16:44 05/27/21 16:44 05/27/21 16:44 05/27/21 16:44 Laboratory Results - last 24 hr 05/27/21 14:00: Sodium 127 L, Potassium 4.4, Chloride 86 L, Carbon Dioxide 30, Anion Gap 15.4 H, BUN 16, Creatinine 0.90, Estimated GFR 66, Est GFR ( Amer) 80, Glucose 792 H*, Calcium 9.4, Total Bilirubin 1.1, AST 33, ALT 26, Alkaline Phosphatase 133 H, Troponin I < 0.01, Total Protein 7.4, Albumin 4.2, Globulin 3.2, Albumin/Globulin Ratio 1.3 05/27/21 14:00: Plasma/Serum Alcohol < 10 05/27/21 14:00: TSH 3.93, Acetone Level None detected 05/27/21 14:08: VBG pH 7.36, VBG pCO2 49.4, VBG pO2 39.0, VBG
[2021-05-28 04:00] VITALS: BP 161/81; PULSE 90; RESP 18; TEMP 36.6; O2SAT 96
[2021-05-28 05:15] VITALS: BMI 39.7
--- NOTE | 2021-05-28 06:15 | PC.NURSE ---
Pt has been a+o x4, pleasant and cooperative t/o shift. Blood sugar has been 356 and 167, covered with high intensity sliding scale insulin. Pt has not voiced any complaints to staff t/o night. Has been able to ambulate to BR with standby assist t/o night. Bed alarm is in place for safety.
--- NOTE | 2021-05-28 07:20 | PC.NURSE ---
In regards to Dr Kulkarni H&P, case management consult ordered. Casandra Mosqueda RN updated during report.
[2021-05-28 07:33] LABS: Anion Gap 9.7 mEq/L (5-15); Blood Urea Nitrogen 12 mg/dl (7-17); Calcium 8.3 mg/dl (8.4-10.2); Carbon Dioxide 28 mmol/L (22.0-30.0); Chloride 105 mmol/L (98-107); Creatinine Clearance Estimated 151 mL/min (50-200); Estimated Glomerular Filt Rate 88 ml/min (>60); GFR (African American) 106 ML/MIN (>60); Glucose 169 mg/dl (74-100); Potassium 3.7 mmoL/L (3.5-5.1); Sodium 139 mmol/L (136-145)
[2021-05-28 08:00] VITALS: BP 161/88; PULSE 96; RESP 17; TEMP 36.6; O2SAT 92
--- NOTE | 2021-05-28 08:14 | P.CONPHA_ITS ---
[facility] Pharmacy VTE Monitoring - Patient Demographics Admission date: 05/28/21 Report Date: 05/28/21 Time: 08:14 Allergies/Adverse Reactions: Patient Allergies No Known Allergies Allergy (Verified 07/28/20 13:09) Height: 1.6 m Weight: 101.831 kg Patient Problems: Current Active Problems Hyperosmolar hyperglycemic state (HHS) (Acute) Altered mental status (Acute) - VTE Risk Labs: VTE Related Lab Results Hgb 14.8 g/dL (12.2-16.2) 05/27/21 16:20 Hct 46.3 % (37.0-47.0) 05/27/21 16:20 Plt Count 247 K/mm3 (142-424) 05/27/21 16:20 BUN 12 mg/dl (7-17) 05/28/21 06:26 Creatinine 0.70 mg/dl (0.52-1.04) D 05/28/21 06:26 Estimated Creat Clear 151 mL/min (50-200) 05/28/21 06:26 Was VTE Risk Assessment Performed: Yes VTE Score: 2 VTE Risk Level: Very Low Risk Clinical Trial Participant: No - Prophylaxis VTE Prophylaxis Ordered?: Yes Types of VTE Prophylaxis: TEDS Knee High
--- NOTE | 2021-05-28 08:34 | HMH.PHAINT ---
home medication list verified using list from outpatient pharmacy [facility], pt does not fill home medications on a regular basis please see home medication list for details
--- NOTE | 2021-05-28 08:49 | HMH.ACPN2 ---
Internal Medicine - PN: Subj *Date: 05/28/21 *Time: 08:49 Interval history: Patient states that she feels better, is alert, oriented x3, does note that she continues to have some visual hallucinations of people in the room that she knows are not really there. She also has some ongoing word finding difficulties that are persistent overnight. Exam Vital signs and Labs for Last 24 Hours: Temp Pulse Resp BP Pulse Ox 97.8 F 96 H 17 161/88 H 92 L 05/28/21 08:00 05/28/21 08:00 05/28/21 08:00 05/28/21 08:00 05/28/21 08:00 Laboratory Results - last 24 hr 05/27/21 14:00: Sodium 127 L, Potassium 4.4, Chloride 86 L, Carbon Dioxide 30, Anion Gap 15.4 H, BUN 16, Creatinine 0.90, Estimated GFR 66, Est GFR ( Amer) 80, Glucose 792 H*, Calcium 9.4, Total Bilirubin 1.1, AST 33, ALT 26, Alkaline Phosphatase 133 H, Troponin I < 0.01, Total Protein 7.4, Albumin 4.2, Globulin 3.2, Albumin/Globulin Ratio 1.3 05/27/21 14:00: Plasma/Serum Alcohol < 10 05/27/21 14:00: TSH 3.93, Acetone Level None detected 05/27/21 14:08: VBG pH 7.36, VBG pCO2 49.4, VBG pO2 39.0, VBG HCO3 27.3, VBG Total CO2 28.8 H, VBG O2 Saturation 73.7 H, VBG Base Excess 1.8 05/27/21 15:26: Urine Color Straw, Urine Appearance Clear, Urine pH 5.5, Ur Specific Capay 1.015, Urine Protein Negative, Urine Glucose (UA) 3+, Urine Ketones Negative, Urine Blood Trace-i, Urine Nitrate Negative, Urine Bilirubin Negative, Urine Urobilinogen 0.2, Ur Leukocyte Esterase Negative, Urine RBC 5-10, Urine WBC 3-5, Ur Squamous Epith Cells Occasional, Urine Bacteria Trace 05/27/21 15:26: Urine Opiates Screen Negative, Urine Methadone Screen Negative, Ur Barbituates Screen Negative, Ur Phencyclidine Scrn Negative, Ur Amphetamines Screen Negative, U Benzodiazepines Scrn Negative, Urine Cocaine Screen Negative, U Marijuana (THC) Screen Negative 05/27/21 15:40: SARS-CoV-2 (PCR) Not detected, Influenza A Untype (PCR) Not detected, Influenza Type B (PCR) Not detected 05/27/21 16:20: WBC 7.5, RBC 5.60 H, Hgb 14.8, Hct 46.3, MCV 82.7, MCH 26.4 L, MCHC 31.9, RDW 14.2, Plt Count 247, MPV 8.5, Neut % (Auto) 72.6, Lymph % (Auto) 15.6, Titus % (Auto) 8.7, Eos % (Auto) 2.2, Baso % (Auto) 0.9, Neut # (Auto) 5.4, Lymph # (Auto) 1.2, Titus # (Auto) 0.7, Eos # (Auto) 0.2, Baso # (Auto) 0.1 05/27/21 16:20: Random Glucose 486 H* 05/27/21 16:40: POC Glucose 533 H* 05/27/21 20:01: POC Glucose 356 H* 05/28/21 06:26: Sodium 139, Potassium 3.7, Chloride 105, Carbon Dioxide 28, Anion Gap 9.7, BUN 12, Creatinine 0.70 D, Estimated Creat Clear 151, Estimated GFR 88, Est GFR ( Amer) 106 D, Glucose 169 H D, Calcium 8.3 L I & O for Last 24 hours: Intake & Output 05/25/21 05/26/21 05/27/21 05/28/21 11:59 11:59 11:59 11:59 Intake Total 360 / 360 Output Total 0 / 0 Balance 360 / 360 Weight 224 lb 8 oz - Constitutional no acute distress - *Routine HEENT Exam Head: Present: normocephalic Eye: Present: EOMI, PERRL ENT: Present: mucous membranes moist - *Routine Neck Exam Present: supple. Absent: lymphadenopathy - *Routine Respiratory Exam Present: CTA bilaterally - *Routine Cardiovascular Exam Present: RRR - *Routine Abdominal Exam Present: soft, normoactive bowel sounds. Absent: tenderness - *Routine Extremities Exam Absent: cyanosis, clubbing, edema - *Routine Skin Exam Present: warm. Absent: rash - *Routine Neurological Exam Present: alert, oriented X3 Assessment and Plan (1) Altered mental status Status: Acute Qualifiers: Altered mental status type: unspecified Qualified Code(s): R41.82 - Altered mental status, unspecified Category: Medical Code(s): R41.82 - Altered mental status, unspecified (2) Hyperosmolar hyperglycemic state (HHS) Status: Acute Category: Medical Code(s): E11.00 - Type 2 diabetes mellitus with hyperosmolarity without nonketotic hyperglycemic-hyperosmolar coma (NKHHC); E11.65 - Type 2 diabetes mellitus with hyperglycemia (
[2021-05-28 08:53] LABS: Ammonia < 9 umol/L (9-30)
--- NOTE | 2021-05-28 09:04 | MR_ITS ---
PROCEDURE: MR HEAD/BRAIN WO CON CLINICAL INDICATION: CONFUSION COMPARISON: No exams were available for comparison TECHNIQUE: Routine multiplanar multi echo sequences are performed without gadolinium enhancement. FINDINGS: No midline shift, mass effect, intracranial hemorrhage, or hydrocephalus is evident. No evidence of acute infarction. The cerebellopontine angles, cerebellum, brainstem and mid brain have an unremarkable appearance. No evidence of acute infarction. Scant T2 white matter hyperintensities are present. The pituitary, optic chiasm, corpus callosum, and craniocervical junction have an unremarkable appearance. No mastoid effusion or sinus air-fluid level. Minimal mucosal thickening involves the ethmoid sinuses. No mastoid effusion. IMPRESSION: No acute intracranial findings Dictated by: Brandon Tracy MD 05/28/2021 15:40 Brandon Tracy MD in [place] 05/28/2021 15:41
[2021-05-28 10:12] LABS: Vitamin B12 570 pg/mL (239-931)
--- NOTE | 2021-05-28 11:15 | SW/DCPLANNER ---
Addendum entered by Pricila Domínguez 05/29/21 13:59: DID A FOLLOW UP CALL THIS MORNING TO [facility]TAKE AND THE ORIGINAL REFERRAL WAS NOT ACCEPTED BUT AFTER MAKING ROUNDS WITH DR AVILA, PATIENT APPEARED TO BE CONFUSED AND NOT MAKING ANY SENSE TODAY.. DR AVILA WAS ADAMANT THAT SHE CAN NOT CARE FOR A 5 YR OLD CHILD IN HER HOME ALONE AND WANTED ME TO CALL THEM BACK... I DID CALL AND GAVE ADDITIONAL INFORMATION AND A NEW ID# WAS GIVEN [id number] PER SAVANNAH.. PATIENT CONTINUES TO GET A WORKUP R/T HER CONFUSION AND DISORIENTATION, PENDING RESULTS MAY DISCHARGE OVER THE WEEKEND.. IF REFERRAL IS ACCEPTED AN INVESTIGATION WILL BE DONE.. Original Note: WENT IN TO SEE PATIENT THIS MORNING AFTER MAKING ROUNDS WITH DR COSTA... HE SPOKE WITH PATIENT ABOUT CONCERNS OF THE CHILD THAT SHE HAS THAT IS 5 Y[address]LD[address] COSTA STATED HER NONCOMPLIANCE OF HER MEDS AND BLOOD SUGARS BEING SO HIGH SHE GETS CONFUSED AND DISORIENTED AND HE FEELS THIS IS A SAFETY ISSUE AND WANTED IT REPORTED TO [employer]... I DID HAVE A LONG TALK WITH PATIENT AND TOLD HER DR COSTA WANTED A REPORT MADE, PATIENT WAS VERY UPSET AND SAID SHE DOESN'T WANT TO LIVE IF SHE LOSES [place]. SHE STATED HE IS WITH HER SISTER AT THIS TIME..I SPOKE WITH SAVANNAH WHEN I MADE A CALL TO [facility] INTAKE AN INTAKE # [id number] WAS GIVEN... DISPOSITION IS UNCERTAIN AT THIS TIME BUT SHOULD BE SOON. WILL FOLLOW UP WITH ID NUMBER LATER IN THE DAY.
[2021-05-28 11:41] LABS: POC Glucose,Bedside 276 (70-110)
[2021-05-28 13:38] LABS: Hemoglobin A1C > 14.0 % (4.0-6.0)
[2021-05-28 15:50] VITALS: BP 162/91; PULSE 83; RESP 17; TEMP 36.7; O2SAT 95
--- NOTE | 2021-05-28 16:38 | PC.NURSE ---
PT IS RESTING IN BED. ALERT AND ORIENTED X4 HOWEVER PT STATES SHE IS STILL HAVING SOME ISSUES WITH SEEING THINGS THAT SHE KNOWS ARE NOT REALLY THERE. PT HAS BEEN AMBULATING TO THE BATHROOM. LUNG SOUNDS CLEAR. ABDOMEN SOFT/NON TENDER WITH ACTIVE BOWEL SOUNDS. PT REQUESTED TO HAVE MEDICATION FOR LEG DISCOMFORT. NOTIFIED TO GET PT'S GABAPENTIN SHE TAKES AT HOME ORDERED. VSS. WILL CONTINUE TO MONITOR.
[2021-05-28 18:22] LABS: POC Glucose,Bedside 290 (70-110)
[2021-05-28 20:00] VITALS: O2SAT 95
[2021-05-28 21:30] LABS: POC Glucose,Bedside 320 (70-110)
[2021-05-29] VITALS: BP 159/87; PULSE 77; RESP 20; TEMP 36.7; O2SAT 97
[2021-05-29 05:53] LABS: POC Glucose,Bedside 217 (70-110)
--- NOTE | 2021-05-29 06:54 | PC.NURSE ---
At beginning of shift, pt reports seeing bright lights in her visual field intermittently. Pt able to voice name, birthday, and where she is at. When asked year, pt states 2013. Pt also having trouble grasping words and is using words inappropriately. Pt reports she thinks symptoms of confusion/forgetfulness started 1 week ago. Pt appears anxious but calm. Pt has rested well t/o shift. Bed alarm on for safety.
[2021-05-29 06:57] LABS: Basophils % 0.5 % (0.1-2.0); Eosinophils # 0.2 K/mm3 (0.0-0.4); Eosinophils % 4.5 % (0.1-12.0); Hematocrit 40.3 % (37.0-47.0); Hemoglobin 12.9 g/dL (12.2-16.2); Lymphocytes # 1.2 K/mm3 (0.7-4.5); Lymphocytes % 26.1 % (10-50); Mean Corpuscular Hemoglobin 26.4 pg (27.0-31.2); Mean Corpuscular Volume 82.6 fl (81-99); Mean Platelet Volume 8.7 fl (7.4-10.4); Monocytes # 0.3 K/mm3 (0.1-1.0); Monocytes % 6.7 % (1.7-9.3); Neutrophils # 2.9 K/mm3 (1.8-7.8); Neutrophils % 62.1 % (37.0-80.0); Platelet Count 219 K/mm3 (142-424); Red Blood Count 4.88 M/mm3 (4.20-5.40); Red Cell Distribution Width 14.9 % (11.5-17.5); White Blood Count 4.7 K/mm3 (4.8-10.8)
[2021-05-29 07:16] LABS: Anion Gap 9.9 mEq/L (5-15); Blood Urea Nitrogen 9 mg/dl (7-17); Calcium 8.2 mg/dl (8.4-10.2); Carbon Dioxide 24 mmol/L (22.0-30.0); Chloride 109 mmol/L (98-107); Creatinine Clearance Estimated 176 mL/min (50-200); Estimated Glomerular Filt Rate 105 ml/min (>60); GFR (African American) 127 ML/MIN (>60); Glucose 242 mg/dl (74-100); Potassium 3.9 mmoL/L (3.5-5.1); Sodium 139 mmol/L (136-145)
[2021-05-29 08:00] VITALS: BP 146/70; PULSE 86; RESP 20; TEMP 36.9; O2SAT 98
[2021-05-29 11:44] LABS: POC Glucose,Bedside 290 (70-110)
[2021-05-29 13:59] VITALS: BMI 39.8
--- NOTE | 2021-05-29 14:59 | HMH.PTEV ---
Physical Therapy Evaluation Rehab PT IP Evaluation Start: 05/29/21 14:11 Freq: ONCE Status: Active Protocol: Document 05/29/21 14:56 PHOTHONY (Rec: 05/29/21 14:59 PHORJAY [id number]) Subjective/History History History 50 yowf adm to [facility] with severe hyperglycemia. She reports she is independent with all mobility and has no steps to enter the home. Subjective Subjective She c/o severe headache this pm, but agrees to treatment. Rehab PT IP Eval Objective Appearance Patient Behavior Appropriate Patient Orientation Person,Place,Time Difficulty following instructions none Speech Pattern Clear Ambulation Patient Able to Ambulate Yes Ambulation Observation IP General Gait Pattern Observation Wide Based Gait Ambulation Distance (feet) 40 Ambulation Assistive Device None Ambulation Ability Supervision/Stand by Balance Ability to Arise Able, uses arms to help Sitting Balance Steady, safe Standing Balance Steady, wide stance Dynamic Sitting Balance Ability Good Dynamic Standing Balance Ability Fair Transfers Bed Transfer Ability Supervision/Stand by Chair Transfer Ability Supervision/Stand by Sit to Stand Bed Transfer Ability Supervision/Stand by Sit to Stand Chair Transfer Ability Supervision/Stand by ROM All Extremities PT ROM Status WFL MMT All Extremities PT MMT WFL Rehab PT IP prob,goals,plan Problems Date of Evaluation: 05/29/21 Discharge Plan PT Discharge Plan Pt appears to be at baseline for all activity at this time and is appropriate to return home once medically stable. G -code Required No PHYSICIAN CERTIFICATION: I certify the specified therapy services for Claudia Benítez are required, authorized, and reviewed every 30 days.
[2021-05-29 15:28] VITALS: BP 154/83; PULSE 78; RESP 16; TEMP 36.7; O2SAT 93
--- NOTE | 2021-05-29 15:44 | HMH.ACPN2 ---
Internal Medicine - PN: Subj *Date: 05/29/21 *Time: 08:00 Interval history: Hemodynamically stable this morning. Labs reviewed, improvement in metabolic disturbances. Morning glucose controlled in the low 200 range on sliding scale insulin. No anion gap today. Patient still mildly confused. Knows who she is. Initially thought she was in [place] but corrected herself and said [place]. Is not fully clear as to why she is in the hospital. Knows that something is wrong but cannot remember that she is here because of elevated blood sugar. Appears to realize that she has been more confused lately. States she has been forgetful and is having a hard time answering questions completely. Orientation better however then when initially admitted. Responding to questions appropriately. Denies chest pain, nausea, vomiting, diarrhea. Exam Vital signs and Labs for Last 24 Hours: Temp Pulse Resp BP Pulse Ox 98.1 F 78 16 154/83 H 93 L 05/29/21 15:28 05/29/21 15:28 05/29/21 15:28 05/29/21 15:28 05/29/21 15:28 Laboratory Results - last 24 hr 05/28/21 08:36: Hemoglobin A1c > 14.0 H 05/28/21 16:15: POC Glucose 290 H 05/28/21 20:28: POC Glucose 320 H* 05/29/21 05:43: POC Glucose 217 H 05/29/21 06:18: WBC 4.7 L D, RBC 4.88, Hgb 12.9, Hct 40.3, MCV 82.6, MCH 26.4 L, MCHC 32.0, RDW 14.9, Plt Count 219, MPV 8.7, Neut % (Auto) 62.1, Lymph % (Auto) 26.1, [facility] % (Auto) 6.7, Eos % (Auto) 4.5, Baso % (Auto) 0.5, Neut # (Auto) 2.9, Lymph # (Auto) 1.2, [facility] # (Auto) 0.3, Eos # (Auto) 0.2, Baso # (Auto) 0.0 05/29/21 06:18: Sodium 139, Potassium 3.9, Chloride 109 H, Carbon Dioxide 24, Anion Gap 9.9, BUN 9, Creatinine 0.60, Estimated Creat Clear 176, Estimated GFR 105, Est GFR ( Amer) 127, Glucose 242 H D, Calcium 8.2 L 05/29/21 11:30: POC Glucose 290 H I & O for Last 24 hours: Intake & Output 05/26/21 05/27/21 05/28/21 05/29/21 23:59 23:59 23:59 23:59 Intake Total 240 / 240 420 / 420 840 / 840 Output Total 0 / 0 Balance 240 / 240 420 / 420 840 / 840 Weight 99.478 kg 101.831 kg 102 kg - Constitutional no acute distress, cooperative - *Routine HEENT Exam Head: Present: normocephalic Eye: Present: EOMI, PERRL ENT: Present: mucous membranes moist - *Routine Neck Exam Present: supple. Absent: lymphadenopathy - *Routine Respiratory Exam Present: CTA bilaterally - *Routine Cardiovascular Exam Present: RRR - *Routine Abdominal Exam Present: soft, normoactive bowel sounds. Absent: tenderness - *Routine Extremities Exam Absent: cyanosis, clubbing, edema - *Routine Skin Exam Present: warm. Absent: rash - *Routine Neurological Exam Present: alert oriented to person, time. initially thought she was in [place], then corrected herself and said [place]. Disoriented to reason for admission. Assessment and Plan (1) Altered mental status Status: Acute Qualifiers: Altered mental status type: unspecified Qualified Code(s): R41.82 - Altered mental status, unspecified Category: Medical Code(s): R41.82 - Altered mental status, unspecified (2) Hyperosmolar hyperglycemic state (HHS) Status: Acute Category: Medical Code(s): E11.00 - Type 2 diabetes mellitus with hyperosmolarity without nonketotic hyperglycemic-hyperosmolar coma (NKHHC); E11.65 - Type 2 diabetes mellitus with hyperglycemia (3) Medical non-compliance Status: Acute Category: Medical Code(s): Z91.19 - Patient's noncompliance with other medical treatment and regimen (4) Hypothyroidism Status: Chronic Qualifiers: Hypothyroidism type: unspecified Qualified Code(s): E03.9 - Hypothyroidism, unspecified Category: Medical Code(s): E03.9 - Hypothyroidism, unspecified (5) Type 2 diabetes mellitus Status: Chronic Qualifiers: Diabetes mellitus manager intermediate insulin use: without correction use Diabetes mellitus complication status: without complication Qualified Code(s): E11.9 - Type 2 diabetes m
--- NOTE | 2021-05-29 16:05 | HMH.OTEV ---
OT Inpatient Evaluation Rehab OT IP Evaluation Start: 05/29/21 14:11 Freq: ONCE Status: Complete Protocol: Document 05/29/21 16:00 ASHLEE (Rec: 05/29/21 16:04 [id number] Rehab OT IP Assessment Subjective History Pt oriented x 3 on arrival. Pt agreeable to engage in therapy evaluation. Pt was admitted via ED on 05/27/21 due to HHS and AMS. Pt was seen in office by PCP who transferred her to ER for possible admission. Pt reports prior to being in the hospital she lived at home with her 5 year old son. According to reports, her son is her nephew who she has custody of. Pt claims she was independent with all ADLs and IADLs prior to being in the hospital. Pt did not use AE during ambulation and she did still drive. Subjective I could do what ever I needed to. Objective Patient Orientation Person,Place,Birthday Upper Extremity Gross ROM WFL Bed Mobility bed mobility-scooting,bed mobility - supine/sit,bed mobility - rolling Assist Level Supervision/Stand by Transfer Training Sit/Stand Transfer Assist Level Supervision/Stand by Chair Transfer Ability Supervision/Stand by Chair Transfer Technique Sit to/from Ambulatory Chair Transfer Assistive Devices None Lower Body Dressing Ability Standby Assistance Rehab OT IP prob,goals,plan Problems Date of Evaluation: 05/29/21 OT IP Problems Bed Mobility,Transfers,Gait, Balance,Self care,Safety Rehab Potential Rehab Potential Innapropriate for Skilled Therapy Discharge Plan OT Discharge Plan At this time, pt appears to be at baseline functionally. She is safe to return home once medically stable per physician. Eval Complexity Eval Charge Codes 37215 - Moderate Complexity G Codes G -code Required No PHYSICIAN CERTIFICATION: I certify the specified therapy services for Claudia Benítez are require
[2021-05-29 17:24] LABS: POC Glucose,Bedside 300 (70-110)
[2021-05-29 20:00] VITALS: BP 147/64; PULSE 80; RESP 16; TEMP 36.9; O2SAT 96
[2021-05-29 22:37] LABS: POC Glucose,Bedside 366 (70-110)
[2021-05-30 04:00] VITALS: BP 158/94; PULSE 70; RESP 22; TEMP 36.4; O2SAT 99
[2021-05-30 05:53] LABS: POC Glucose,Bedside 256 (70-110)
[2021-05-30 07:33] LABS: Basophils % 0.6 % (0.1-2.0); Eosinophils # 0.2 K/mm3 (0.0-0.4); Eosinophils % 2.4 % (0.1-12.0); Hematocrit 43.9 % (37.0-47.0); Hemoglobin 13.9 g/dL (12.2-16.2); Lymphocytes % 15.2 % (10-50); Mean Corpuscular HGB Conc 31.6 g/dL (31.8-35.4); Mean Corpuscular Hemoglobin 26.1 pg (27.0-31.2); Mean Corpuscular Volume 82.6 fl (81-99); Mean Platelet Volume 8.2 fl (7.4-10.4); Monocytes # 0.3 K/mm3 (0.1-1.0); Monocytes % 5.4 % (1.7-9.3); Neutrophils # 4.8 K/mm3 (1.8-7.8); Neutrophils % 76.4 % (37.0-80.0); Platelet Count 261 K/mm3 (142-424); Red Blood Count 5.31 M/mm3 (4.20-5.40); Red Cell Distribution Width 14.8 % (11.5-17.5); White Blood Count 6.3 K/mm3 (4.8-10.8)
--- NOTE | 2021-05-30 07:41 | HMH.DCSUM ---
General - General Admission date:: 05/27/21 Discharge date: 05/30/21 HPI HPI: 50-year-old white female diabetic with a long history of medical noncompliance who presented to the office today with a chief complaint of just feeling unwell. She was found to be in significant confusion state with difficulty word finding, disorientation and tachycardia and evidence of dehydration. Once arrangements were made for her nephew, who is in her custody to be taken care of by family member she was transferred to the emergency department. Work-up was noted. Family reports that she is not been compliant with her medications and for the last 3 or 4 weeks has been extremely confused when they talk to her but is refused to go to the physician's office. In the ER she was found to have significant hyperglycemia, evidence of hyperosmolar changes but was not acidotic. Diagnosis of hyperosmolar mental status changes were made. CT scan showed some interesting but obscure findings which I do not feel are causing her mental status change. No evidence of stroke disease. Note the patient states that she takes all of her medicines and I do not know why my family would say that. Hospital Course Hospital Course: 50-year-old female with multiple complex comorbidities. Admitted for hyperglycemia and encephalopathy. Clinically showing improvement with normalization of most of her labs. Still mildly hyperglycemic but much better controlled. Mentation is improving but not back to baseline. Problems addressed as follows Encephalopathy - Mental status-improving. -B12 and ammonia within normal range. -Orientation to person place and time is improving but still showing minor deficits in recall and comprehension. -Would like to monitor for 1 more day. -Imaging of head with no significant abnormalities or identification of stroke. - Most likely diagnosis is ongoing confusion from severe and long-term hyperglycemia. Uncontrolled type 2 diabetes Hyperglycemia/DKA -Patient states she has been compliant. Taking her oral medications. Denies taking insulin even though it has been provided for her consistently at office visits. While I question her adherence to her medical regimen, if she has been compliant with oral medications, her diabetes is beyond the control with just oral agents. - At dire need for use of insulin, tolerating sliding scale well with improvement in numbers. Initiated long-acting insulin during admission. Shown how to administer and participated in observed therapy/administration by nursing. Pt self administered at least 3 doses of insulin to self. Demonstrated competence with Pen syringe. - DC on 25units of insulin glargine. will need titration in outpatient setting - resume PO meds -We will need close follow-up to address compliance/adherence to diabetes regimen and monitoring of insulin usage along with further education. Social: - Confusion along with her current sole custody of a minor child - reiterated today with her that we worry about her safety and the safety of her son. - Pt will go home with son and her sister to monitor for safety and compliance of med regimen. - Pt has been reported to child protective services out of concern for her ability to care for her self at this time, let alone a 5yo. Electrolytes: - abnormalities improving, tolerating PO intake Medically stable for discharge home. Examined on day of discharge Objective Vital signs: Temp Pulse Resp BP Pulse Ox 97.5 F L 70 22 158/94 H 99 05/30/21 04:00 05/30/21 04:00 05/30/21 04:00 05/30/21 04:00 05/30/21 04:00 no acute distress, obese, cooperative - *Routine HEENT Exam Head: Present: normocephalic Eye: Present: EOMI, PERRL ENT: Present: mucous membranes moist - *Routine Neck Exam Present: supple - *Routine Respiratory Exam Present: CTA bilaterally - *Routine Cardiovascular Exam Present: RRR - *Routine Abdominal Exam Present:
[2021-05-30 07:42] LABS: Alanine Aminotransferase 19 U/L (12-78); Albumin Level 3.6 g/dl (3.5-5.0); Albumin/Globulin Ratio 1.3 (1.1-1.8); Alkaline Phosphatase 79 U/L (38-126); Anion Gap 10.5 mEq/L (5-15); Aspartate Amino Transferase 20 U/L (14-36); Bilirubin,Total 0.7 mg/dl (0.2-1.3); Blood Urea Nitrogen 12 mg/dl (7-17); Calcium 9.2 mg/dl (8.4-10.2); Carbon Dioxide 28 mmol/L (22.0-30.0); Chloride 102 mmol/L (98-107); Creatinine Clearance Estimated 177 mL/min (50-200); Estimated Glomerular Filt Rate 105 ml/min (>60); GFR (African American) 127 ML/MIN (>60); Globulin 2.7 g/dL (1.3-3.2); Glucose 271 mg/dl (74-100); Magnesium 1.3 mg/dl (1.6-2.3); Potassium 3.5 mmoL/L (3.5-5.1); Sodium 137 mmol/L (136-145); Total Protein,Serum 6.3 g/dl (6.3-8.2)
[2021-05-30 07:55] VITALS: BP 161/81; PULSE 81; RESP 18; TEMP 36.7; O2SAT 99
[2021-05-30 08:00] VITALS: O2SAT 94
[2021-05-30 17:28] LABS: POC Glucose,Bedside 328 (70-110)
== END 2021-05-30 15:11 | disposition home or self-care (01) | DRG 638 ==
LOC: ER 13:32 → 2ND 15:52
PROVIDERS: Internal Medicine Adolescent Medicine; Admitting Provider Internal Medicine Adolescent Medicine; Emergency Provider Emergency Medicine; PCP Internal Medicine Adolescent Medicine; Visit Provider Internal Medicine Adolescent Medicine
DX: E11.00 Type 2 diabetes mellitus with hyperosmolarity without nonketotic hyperglycemic-hyperosmolar coma (NKHHC) (principal); G93.40 Encephalopathy, unspecified; Z79.84 Long term (current) use of oral hypoglycemic drugs; Z91.14 Patient's other noncompliance with medication regimen; I25.10 Atherosclerotic heart disease of native coronary artery without angina pectoris; E78.5 Hyperlipidemia, unspecified; Z95.1 Presence of aortocoronary bypass graft; E03.9 Hypothyroidism, unspecified
CPT/HCPCS: 36415; 70450; 70496; 70498; 70551; 71045; 80048; 80053; 80305; 81001; 82009; 82140; 82607; 82803; 82947; 82962; 83036; 83735; 84443; 84484; 85025; 93005; 96365; 96366; 96375; 97166; 99285; C9803; Q9967; U0003; U0005

== ENCOUNTER 2021-06-07 06:58 | Emergency (ER) | payer OTHER, SELFPAY ==
[2021-06-07 07:00] VITALS: BP 175/100; PULSE 100; RESP 18; TEMP 37.4; O2SAT 100; BMI 37.8
[2021-06-07 07:20] LABS: POC Glucose,Bedside 363 (70-110)
[2021-06-07 07:38] VITALS: BP 175/100; PULSE 92; RESP 16; O2SAT 97
[2021-06-07 07:41] LABS: Basophils # 0.1 K/mm3 (0-0.2); Basophils % 1.2 % (0.1-2.0); Eosinophils # 0.1 K/mm3 (0.0-0.4); Eosinophils % 1.7 % (0.1-12.0); Hematocrit 48.4 % (37.0-47.0); Hemoglobin 15.8 g/dL (12.2-16.2); Lymphocytes # 1.2 K/mm3 (0.7-4.5); Lymphocytes % 14.7 % (10-50); Mean Corpuscular HGB Conc 32.7 g/dL (31.8-35.4); Mean Corpuscular Hemoglobin 26.3 pg (27.0-31.2); Mean Corpuscular Volume 80.6 fl (81-99); Mean Platelet Volume 8.6 fl (7.4-10.4); Monocytes # 0.5 K/mm3 (0.1-1.0); Monocytes % 5.9 % (1.7-9.3); Neutrophils # 6.1 K/mm3 (1.8-7.8); Neutrophils % 76.5 % (37.0-80.0); Platelet Count 299 K/mm3 (142-424); Red Cell Distribution Width 14.6 % (11.5-17.5)
[2021-06-07 07:46] LABS: Alanine Aminotransferase 20 U/L (12-78); Albumin Level 4.2 g/dl (3.5-5.0); Albumin/Globulin Ratio 1.4 (1.1-1.8); Alkaline Phosphatase 99 U/L (38-126); Anion Gap 11.8 mEq/L (5-15); Aspartate Amino Transferase 23 U/L (14-36); Blood Urea Nitrogen 13 mg/dl (7-17); Calcium 10.3 mg/dl (8.4-10.2); Carbon Dioxide 30 mmol/L (22.0-30.0); Chloride 97 mmol/L (98-107); Estimated Glomerular Filt Rate 88 ml/min (>60); GFR (African American) 106 ML/MIN (>60); Glucose 395 mg/dl (74-100); Magnesium 1.3 mg/dl (1.6-2.3); Potassium 3.8 mmoL/L (3.5-5.1); Sodium 135 mmol/L (136-145); Total Protein,Serum 7.2 g/dl (6.3-8.2)
[2021-06-07 07:46] LABS: Microscopic, Urine URINE MICROSCOPIC (MICROSCOPIC)
--- NOTE | 2021-06-07 07:46 | HMH.EDGENADL ---
ED Disposition <[place]ua Mills - Last Filed: 06/07/21 08:17> Condition on Discharge: Good - Critical Care Critical Care Time: No <Perry Lopez - Last Filed: 06/07/21 09:45> Clinical Impression: Atypical migraine, Hyperglycemia Disposition: Home, Self-Care Instructions: DI for Migraine Prescriptions: Promethazine HCl [Phenergan 25mg tab] 25 mg PO BID #14 tab Transmission Status: Pending to [facility]/pharmacy #[id number] Referrals: Nick Kulkarni MD [Primary Care Provider] - Attestation: On 06/07/21, the high probability of a clinically significant, sudden or life threatening deterioration of the following system(s) required my full and direct attention, intervention and personal management. The time I documented below is in addition to time spent performing reported procedures but includes the following listed in this critical care notation. Medical Decision Making - Medical Records Medical records reviewed: Yes: I reviewed the patient's medical records. - Lab Data Lab results reviewed: Yes: I reviewed the patient's lab results. Result diagrams: 06/07/21 07:35 06/07/21 07:35 <Akosua Mills - Last Filed: 06/07/21 08:17> - Medical Records Medical records reviewed: Yes: I reviewed the patient's medical records. - Alphonso Inquiry Pt receiving controlled substance: No - Lab Data Result diagrams: 06/07/21 07:35 06/07/21 07:35 - CT Data CT Scan: Head Time Received: 09:[address] Reviewed: Yes: I have reviewed the patient's CT results, I have viewed the radiologist's interpretation Preliminary Findings: Normal/NAD - Reevaluation(s) Time: 09:43 <Perry Lopez - Last Filed: 06/07/21 09:45> Vital Signs: 06/07/21 07:00 06/07/21 07:38 06/07/21 08:01 Temperature 99.3 F Temperature Source Oral Pulse Rate 92 H 90 Pulse Rate [Left Radial] 100 H Respiratory Rate 18 16 16 Blood Pressure 175/100 H 162/81 H Blood Pressure [Right Arm] 175/100 H Blood Pressure Mean 108 Blood Pressure Mean [Right Arm] 125 Blood Pressure Source [Right Arm] Automatic Cuff Blood Pressure Position [Right Arm] Sitting 02 Sat by Pulse Oximetry 100 97 98 Oxygen Delivery Method Room Air - Lab Data Lab Results 06/07/21 07:12: POC Glucose 363 H* 06/07/21 07:25: Urine Color Yellow, Urine Appearance Clear, Urine pH 6.5, Ur Specific [place] 1.015, Urine Protein 2+, Urine Glucose (UA) 3+, Urine Ketones Trace, Urine Blood 1+, Urine Nitrate Negative, Urine Bilirubin Negative, Urine Urobilinogen 0.2, Ur Leukocyte Esterase Trace, Urine RBC 5-10, Urine WBC Occasional, Ur Squamous Epith Cells 3-5, Urine Bacteria Trace 06/07/21 07:25: Acetone Level Detected 06/07/21 07:33: VBG pH 7.35, VBG pCO2 47.3, VBG pO2 44.6 H, VBG HCO3 25.5, VBG Total CO2 27.0, VBG Base Excess -0.1 06/07/21 07:35: WBC 8.0, RBC 6.00 H, Hgb 15.8, Hct 48.4 H, MCV 80.6 L, MCH 26.3 L, MCHC 32.7, RDW 14.6, Plt Count 299, MPV 8.6, Neut % (Auto) 76.5, Lymph % (Auto) 14.7, [place] % (Auto) 5.9, Eos % (Auto) 1.7, Baso % (Auto) 1.2, Neut # (Auto) 6.1, Lymph # (Auto) 1.2, [place] # (Auto) 0.5, Eos # (Auto) 0.1, Baso # (Auto) 0.1 06/07/21 07:35: Sodium 135 L, Potassium 3.8, Chloride 97 L, Carbon Dioxide 30, Anion Gap 11.8, BUN 13, Creatinine 0.70, Estimated GFR 88, Est GFR ( Amer) 106, Glucose 395 H, Calcium 10.3 H, Magnesium 1.3 L, Total Bilirubin 1.0, AST 23, ALT 20, Alkaline Phosphatase 99, Total Protein 7.2, Albumin 4.2, Globulin 3.0, Albumin/Globulin Ratio 1.4 06/07/21 07:35: TSH 4.70 H, Thyroxine (T4) 11.5 H Orders (Tests/Meds): ED MEDICATIONS Generic Name Dose Route Start Last Admin Trade Name Freagus PRN Reason Stop Dose Admin Sodium Chloride 1,000 mls @ 999 mls/hr 06/07/21 09:15 Sod Chlor 0.9% 1000ml Bag IV 06/07/21 10:15 .[id number] AMAURI Discontinued Medications Generic Name Dose Route Start Last Admin Trade Name Leroy PRN Reason Stop Dose Admin Diphenhydramine HCl 25 mg 06/07/21 07:36 06/07/21 08:00 Diphenhydram
[2021-06-07 07:50] LABS: Appearance,Urine CLEAR (Clear); Bilirubin,Urine Negative (Negative); Blood, Urine 1+ (Negative); Color,Urine YELLOW (Yellow); Glucose,Urine (UA) 3+ (Negative); Ketones,Urine TRACE (Negative); Leukocyte Esterase,Urine TRACE (Negative); Nitrate,Urine Negative (Negative); PH,Urine 6.5 (5.0-8.5); Protein,Urine 2+ (Negative); Specific Gravity, Urine 1.015 (1.005-1.030); Urobilinogen,Urine 0.2 EU/dl (0.2)
[2021-06-07 07:55] LABS: Acetone, Serum (Rapid) Detected (None Detect)
[2021-06-07 08:01] VITALS: BP 162/81; PULSE 90; RESP 16; O2SAT 98
[2021-06-07 08:12] LABS: Bacteria,Urine Trace /lpf; WBC,Urine Occasional #/hpf (0-3)
[2021-06-07 08:23] LABS: T4 (Thyroxine) 11.5 ug/dl (5.53-11.0)
[2021-06-07 08:29] LABS: VBG Base Excess -0.1 mmol/L (-2.4-2.3); VBG HCO3 25.5 mmol/L (23-30); VBG PCO2 47.3 mmol/L (35-51); VBG PH 7.35 mmol/L (7.31-7.41); VBG PO2 44.6 mmol/L (28-40)
[2021-06-07 08:31] VITALS: BP 166/88; PULSE 96; O2SAT 97
--- NOTE | 2021-06-07 08:38 | CT_ITS ---
PROCEDURE INFORMATION: Exam: CT Head Without Contrast Exam date and time: 06/07/2021 8:38 AM Age: 50 years old Clinical indication: Dizziness; Additional info: Headache and dizzy - balance issues TECHNIQUE: Imaging protocol: Computed tomography of the head without contrast. Radiation optimization: All CT scans at this facility use at least one of these dose optimization techniques: automated exposure control; mA and/or kV adjustment per patient size (includes targeted exams where dose is matched to clinical indication); or iterative reconstruction. COMPARISON: MR HEAD/BRAIN WO CON 05/28/2021 12:41 PM FINDINGS: Brain: The brain demonstrates diffuse volume loss. There is white matter hypodensity most consistent with chronic small vessel ischemic change. Cerebral ventricles: The ventricles and CSF spaces are proportionately enlarged. There is stable hyperdensity within the cord plexus of the temporal lobe of the left lateral ventricle. Paranasal sinuses: Visualized sinuses are unremarkable. No fluid levels. Mastoid air cells: Visualized mastoid air cells are well aerated. Orbital cavity: There is leftward gaze preference. Bones/joints: No acute fracture. Soft tissues: There is a stable small focal rightward dural/falx calcification. IMPRESSION: No acute interval change.
[2021-06-07 09:49] VITALS: BP 137/78; PULSE 96; O2SAT 98
[2021-06-07 10:07] VITALS: BP 157/79; PULSE 95; RESP 16; TEMP 36.6; O2SAT 98
== END 2021-06-07 10:09 | disposition home or self-care (01) ==
PROVIDERS: Emergency Provider Emergency Medicine; PCP Internal Medicine Adolescent Medicine
DX: G43.009 Migraine without aura, not intractable, without status migrainosus (principal); E11.65 Type 2 diabetes mellitus with hyperglycemia; F41.8 Other specified anxiety disorders; I10 Essential (primary) hypertension; E78.5 Hyperlipidemia, unspecified; E03.9 Hypothyroidism, unspecified
CPT/HCPCS: 70450; 80053; 81001; 82009; 82803; 82962; 83735; 84436; 84443; 85025; 96365; 96375; 99283

== ENCOUNTER 2021-06-11 03:09 | Inpatient (IN) | payer OTHER, SELFPAY ==
[2021-06-11] VITALS (21 sets, daily range): BP systolic 125–220; BP diastolic 64–105; PULSE 93–108; RESP 14–21; TEMP 36.3–37.7; O2SAT 89–99; BMI 43.2; BMI 43.3
--- NOTE | 2021-06-11 03:07 | ECG_ITS ---
APPROVED REPORT Exam: Resting ECG HR:108 bpm ECG Measurements Heart Rate 108 AXES TN 154 P 34 QRSd 96 QRS 127 QT 360 T 40 QTc 482 Conclusion Sinus tachycardia Right atrial enlargement Incomplete right bundle branch block Right ventricular hypertrophy Possible Inferior infarct, age undetermined Abnormal ECG Electronically signed by : Nick Kulkarni MD 06/11/2021 21:38:38
--- NOTE | 2021-06-11 03:15 | CT_ITS ---
PROCEDURE INFORMATION: Exam: CT Head Without Contrast Exam date and time: 06/11/2021 3:15 AM Age: 50 years old Clinical indication: Altered mental status/memory loss; Additional info: AMS TECHNIQUE: Imaging protocol: Computed tomography of the head without contrast. Radiation optimization: All CT scans at this facility use at least one of these dose optimization techniques: automated exposure control; mA and/or kV adjustment per patient size (includes targeted exams where dose is matched to clinical indication); or iterative reconstruction. COMPARISON: CT HEAD/BRAIN WO CON 06/07/2021 8:55 AM FINDINGS: Brain: Diffuse enlargement of the CSF containing spaces consistent with global parenchymal volume loss. Scatter white matter hypodensities consistent with microangiopathic disease. Unchanged mineralization along the falx. No acute intracranial hemorrhage or large territorial infarct. Cerebral ventricles: Unchanged hyperdensity involving the choroid plexus of the left temporal lobe. Asymmetric enlargement of the right greater than left ventricle, unchanged. Paranasal sinuses: Hypoplastic frontal sinuses with diffuse opacification of the right frontal sinus. Remainder of the paranasal sinuses are unremarkable. Mastoid air cells: Visualized mastoid air cells are well aerated. Orbital cavity: The orbits are unremarkable Bones/joints: No acute fracture. Soft tissues: Unremarkable. IMPRESSION: 1. No acute intracranial hemorrhage or large territorial infarct. 2. Chronic findings as above.
--- NOTE | 2021-06-11 03:15 | XR_ITS ---
PROCEDURE INFORMATION: Exam: XR Chest Exam date and time: 06/11/2021 3:15 AM Age: 50 years old Clinical indication: Other: AMS TECHNIQUE: Imaging protocol: XR of the chest. Views: 1 view. COMPARISON: CR XR CHEST PORTABLE 05/27/2021 2:22 PM FINDINGS: Lungs: The lungs are poorly inflated. Hazy opacification of the left lower lobe. Pleural spaces: Unremarkable. No pleural effusion. No pneumothorax. Heart/Mediastinum: Cardiomegaly unchanged from 05/27/2021. Bones/joints: Multilevel degenerative type changes of the spine. No acute osseous abnormality. Sternotomy wires and mediastinal surgical clips are present, consistent with previous coronary arterial bypass grafting. Intraperitoneal space: Visualized abdomen is unremarkable. IMPRESSION: 1. Hazy opacification of the left lower lobe is likely accentuated by summation artifact. Infection cannot be excluded. Recommend correlation with history and physical exam. 2. Remainder of the exam is relatively unchanged 05/27/2021.
--- NOTE | 2021-06-11 03:28 | PC.NURSE ---
Called [facility] to recieved records from previous er visit
[2021-06-11 03:43] LABS: Microscopic, Urine URINE MICROSCOPIC (MICROSCOPIC)
[2021-06-11 03:46] LABS: Basophils # 0.1 K/mm3 (0-0.2); Basophils % 0.7 % (0.1-2.0); Eosinophils # 0.2 K/mm3 (0.0-0.4); Hematocrit 43.4 % (37.0-47.0); Hemoglobin 14.3 g/dL (12.2-16.2); Lymphocytes # 1.1 K/mm3 (0.7-4.5); Lymphocytes % 16.8 % (10-50); Mean Corpuscular HGB Conc 32.9 g/dL (31.8-35.4); Mean Corpuscular Hemoglobin 26.5 pg (27.0-31.2); Mean Corpuscular Volume 80.7 fl (81-99); Mean Platelet Volume 8.3 fl (7.4-10.4); Monocytes # 0.4 K/mm3 (0.1-1.0); Monocytes % 6.1 % (1.7-9.3); Neutrophils # 4.9 K/mm3 (1.8-7.8); Neutrophils % 73.5 % (37.0-80.0); Platelet Count 237 K/mm3 (142-424); Red Blood Count 5.38 M/mm3 (4.20-5.40); Red Cell Distribution Width 14.5 % (11.5-17.5); White Blood Count 6.7 K/mm3 (4.8-10.8)
--- NOTE | 2021-06-11 03:46 | HMH.EDAMS ---
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: without mcc use Diabetes mellitus complication status: with other specified complication Qualified Code(s): E11.69 - Type 2 diabetes mellitus with other specified complication Disposition: Home, Self-Care Condition on Discharge: Good Instructions: DI for Altered Mental Status Additional Instructions: call pcp for follow up Prescriptions: Divalproex Sodium [Depakote (Delayed Release) 500mg Tab] 500 mg PO BID #60 tab Transmission Status: Pending to [facility]/pharmacy #[id number] Referrals: Nick Kulkarni MD [Primary Care Provider] - - Critical Care Critical Care Time: No Attestation: On 06/11/21, the high probability of a clinically significant, sudden or life threatening deterioration of the following system(s) required my full and direct attention, intervention and personal management. The time I documented below is in addition to time spent performing reported procedures but includes the following listed in this critical care notation. Medical Decision Making - Medical Records Medical records reviewed: Yes: I reviewed the patient's medical records. - Alphonso Inquiry Pt receiving controlled substance: No Vital Signs: 06/11/21 03:08 Temperature 99.8 F H Temperature Source Rectal Pulse Rate [Right] 108 H Respiratory Rate 18 Blood Pressure [Right Arm] 155/95 H Blood Pressure Mean [Right Arm] 115 02 Sat by Pulse Oximetry 96 Oxygen Delivery Method Room Air - Lab Data Lab results reviewed: Yes: I reviewed the patient's lab results. Lab Results 06/11/21 03:25: WBC 6.7, RBC 5.38, Hgb 14.3, Hct 43.4, MCV 80.7 L, MCH 26.5 L, MCHC 32.9, RDW 14.5, Plt Count 237, MPV 8.3, Neut % (Auto) 73.5, Lymph % (Auto) 16.8, [place] % (Auto) 6.1, Eos % (Auto) 3.0, Baso % (Auto) 0.7, Neut # (Auto) 4.9, Lymph # (Auto) 1.1, [place] # (Auto) 0.4, Eos # (Auto) 0.2, Baso # (Auto) 0.1, ESR 67 H 06/11/21 03:25: Sodium 137, Potassium 3.6, Chloride 100, Carbon Dioxide 29, Anion Gap 11.6, BUN 13, Creatinine 0.80, Estimated Creat Clear 74, Estimated GFR 75, Est GFR ( Amer) 91, Glucose 270 H, Calcium 9.0, Total Bilirubin 0.8, AST 22, ALT 17, Alkaline Phosphatase 82, C-Reactive Protein 5.4 H, Total Protein 6.4, Albumin 3.6, Globulin 2.8, Albumin/Globulin Ratio 1.3, Procalcitonin 0.077 06/11/21 03:25: Urine Color Yellow, Urine Appearance Clear, Urine pH 6.0, Ur Specific [place] 1.020, Urine Protein 2+, Urine Glucose (UA) 3+, Urine Ketones Negative, Urine Blood Negative, Urine Nitrate Negative, Urine Bilirubin Negative, Urine Urobilinogen 0.2, Ur Leukocyte Esterase Negative, Ur Squamous Epith Cells Occasional 06/11/21 03:25: Lactate 1.8 06/11/21 03:25: Urine Opiates Screen Negative, Urine Methadone Screen Negative, Ur Barbituates Screen Negative, Ur Phencyclidine Scrn Negative, Ur Amphetamines Screen Negative, U Benzodiazepines Scrn Positive H, Urine Cocaine Screen Negative, U Marijuana (THC) Screen Negative Result diagrams: 06/11/21 03:25 06/11/21 03:25 Orders (Tests/Meds): ED MEDICATIONS Discontinued Medications Generic Name Dose Route Start Last Admin Trade Name Steffenq PRN Reason Stop Dose Admin Acetaminophen 650 mg 06/11/21 03:17 06/11/21 03:21 Acetaminophen 650mg Suppository RC 06/11/21 03:18 650 mg ONCE ONE Administration ORDERS Category Date Time Status Blood Culture Stat Micro 06/11/21 03:25 Received - Radiology Data #1 Image(s): Chest Image Reviewed: Yes I have reviewed radiologist's interpretation Preliminary Findings: Abnormal - CT Data CT Scan: Head Time Received: 07:[address] Reviewed: Yes: I have viewed the radiologist's interpretation Preliminary Findings: Abnormal (chronic) - ECG Data Tracing #1 Normal Sinus Rhythm: Yes Ischemic changes: non-specific ST-T wave changes - Physician Consults Physician Consulted: jurgen Reason -: P
[2021-06-11 03:47] LABS: Appearance,Urine CLEAR (Clear); Bilirubin,Urine Negative (Negative); Blood, Urine Negative (Negative); Color,Urine YELLOW (Yellow); Glucose,Urine (UA) 3+ (Negative); Ketones,Urine Negative (Negative); Leukocyte Esterase,Urine Negative (Negative); Nitrate,Urine Negative (Negative); Protein,Urine 2+ (Negative); Urobilinogen,Urine 0.2 EU/dl (0.2)
[2021-06-11 03:49] LABS: Chloride 100 mmol/L (98-107)
[2021-06-11 03:50] LABS: Potassium 3.6 mmoL/L (3.5-5.1); Sodium 137 mmol/L (136-145)
[2021-06-11 03:52] LABS: Alanine Aminotransferase 17 U/L (12-78); Alkaline Phosphatase 82 U/L (38-126); Anion Gap 11.6 mEq/L (5-15); Aspartate Amino Transferase 22 U/L (14-36); Bilirubin,Total 0.8 mg/dl (0.2-1.3); Blood Urea Nitrogen 13 mg/dl (7-17); Carbon Dioxide 29 mmol/L (22.0-30.0); Creatinine Clearance Estimated 74 mL/min (50-200); Estimated Glomerular Filt Rate 75 ml/min (>60); GFR (African American) 91 ML/MIN (>60)
[2021-06-11 03:53] LABS: Albumin Level 3.6 g/dl (3.5-5.0); Albumin/Globulin Ratio 1.3 (1.1-1.8); Globulin 2.8 g/dL (1.3-3.2); Glucose 270 mg/dl (74-100); Lactic Acid 1.8 mmol/L (0.7-2.1); Total Protein,Serum 6.4 g/dl (6.3-8.2)
[2021-06-11 03:58] LABS: Benzodiazepines Screen,Urine Positive ng/ml (<200)
[2021-06-11 03:59] LABS: Amphetamine/Metha Screen,Urine Negative ng/ml (<1000); Barbiturates Screen,Urine Negative ng/ml (<200)
[2021-06-11 04:00] LABS: Cannabinoid Screen,Urine Negative ng/ml (<50)
[2021-06-11 04:01] LABS: Cocaine Screen,Urine Negative ng/ml (<300); Methadone Screen,Urine Negative ng/ml (<300); Squamous Epithelial Cell,Urine Occasional #/hpf (0-5)
[2021-06-11 04:02] LABS: Opiate Screen,Urine Negative ng/ml (<300)
[2021-06-11 04:03] LABS: Phencyclidine Screen,Urine Negative ng/ml (<25)
[2021-06-11 04:04] LABS: C-Reactive Protein 5.4 mg/L (0-4)
[2021-06-11 04:18] LABS: Procalcitonin 0.077 ng/mL (0.0-2.0)
[2021-06-11 05:09] LABS: Erythrocyte Sedimentation Rate 67 mm/hr (0-30)
--- NOTE | 2021-06-11 06:12 | PC.NURSE ---
Dr. Cayla berkowitz
--- NOTE | 2021-06-11 06:17 | PC.NURSE ---
sarah on phone with dr seaman @ this time
--- NOTE | 2021-06-11 06:56 | PC.NURSE ---
@ 0625 Called [facility] and s/w Mushtaq for Depakote IV loading dose. 400mg IV in 100ml NS, over 60 min infusion.
--- NOTE | 2021-06-11 08:38 | PC.NURSE ---
Dr Dawn speaking with Dr Kulkarni
--- NOTE | 2021-06-11 08:39 | PC.NURSE ---
attempted to transfer pt to wheelchair when she became weak, assisted pt to the floor and transferred back to bed with staff assistance. Pt continues to have seizure like activity while in room. MD aware. Family notified that pt will be admitted.
[2021-06-11 09:23] LABS: Coronavirus 19, PCR Not Detected (NotDetected); Influenza A, PCR Not Detected (NotDetected); Influenza B, PCR Not Detected (NotDetected)
--- NOTE | 2021-06-11 10:22 | PC.NURSE ---
Pt arrived to the floor at this time
--- NOTE | 2021-06-11 12:59 | HMH.PHAINT ---
Patient home medications verified with [facility] pharmacy and last [facility] discharge
--- NOTE | 2021-06-11 13:07 | P.CONPHA_ITS ---
[facility] Pharmacy VTE Monitoring - Patient Demographics Admission date: 06/11/21 Report Date: 06/11/21 Time: 13:07 Allergies/Adverse Reactions: Patient Allergies No Known Allergies Allergy (Verified 07/28/20 13:09) Height: 1.65 m Weight: 117.934 kg Patient Problems: Current Active Problems Type 2 diabetes mellitus (Chronic) Seizure-like activity (Acute) Hx of CABG (Chronic) - VTE Risk Labs: VTE Related Lab Results Hgb 14.3 g/dL (12.2-16.2) 06/11/21 03:25 Hct 43.4 % (37.0-47.0) 06/11/21 03:25 Plt Count 237 K/mm3 (142-424) 06/11/21 03:25 BUN 13 mg/dl (7-17) 06/11/21 03:25 Creatinine 0.80 mg/dl (0.52-1.04) 06/11/21 03:25 Estimated Creat Clear 74 mL/min (50-200) 06/11/21 03:25 VTE Score: 3 VTE Risk Level: Low Risk - Prophylaxis VTE Prophylaxis Ordered?: Yes Types of VTE Prophylaxis: TEDS Knee High Location of Applied Device: Bilateral Lower Extremeties
[2021-06-11 13:59] LABS: POC Glucose,Bedside 225 (70-110)
--- NOTE | 2021-06-11 14:08 | MR_ITS ---
PROCEDURE: MR HEAD/BRAIN WO/W CON CLINICAL INDICATION: SEIZURES COMPARISON: MR MR HEAD/BRAIN WO CON from 05/28/[address] HEAD/BRAIN WO CON from 06/07/[address] HEAD/BRAIN WO CON from 06/11/2021 TECHNIQUE: Routine multiplanar multi echo sequences are performed without gadolinium enhancement. FINDINGS: There is a moderate degree of motion artifact obscuring fine detail. Many of the sequences are nondiagnostic. Axial diffusion images however do demonstrated gyriform area restricted diffusion in the left occipital lobe hyperintense on diffusion and hypointense on the ADC images consistent with acute infarction possibly watershed type. This has developed since the previous exam. No other areas of restricted diffusion are apparent. There is asymmetry in the occipital horns of the left lateral ventricles the left smaller than the right. This however is a chronic finding. No enhancing lesions are evident. 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 Dictated by: Brandon Tracy MD 06/11/2021 16:39 Brandon Tracy MD in [place] 06/11/2021 16:39
--- NOTE | 2021-06-11 15:06 | PC.NURSE ---
PT IS OFF THE FLOOR AT THIS TIME. PT ARRIVED TO THE FLOOR THIS MORNING AT 1022. SINCE ARRIVING TO THE FLOOR PT HAS NOT BEEN VERBAL OR COHERENT. PT WOULD OPEN HER EYES BUT WOULD ONLY OCCASIONALLY GIVE DIRECT EYE CONTACT. PT HAS HAD 2 SEIZURES SINCE ARRIVING TO THE FLOOR THAT WAS OBSERVED PER NURSING STAFF. THE SECOND WAS OBSERVED BY PCP AND NURSING STAFF. AFTERWARDS PT WAS FLACCID ON THE RT SIDE (DERICK). DURING THE SECOND SEIZURE PCP ORDERED ATIVAN 1 MG ONE TIME, PCP NOTIFIED PHARMACY FOR KEPPRA DOSAGE AND REQUESTED FOR PT HAVE MRI TODAY. PT RESTED WELL UNTIL RADIOLOGY ARRIVED TO TAKE PT OFF THE FLOOR FOR MRI. WHILE ON THE MRI TABLE PT WAS VERY UPSET AND WOULD NOT BE STILL. NOTIFIED PCP ANOTHER ATIVAN 1 MG ONE TIME WAS ORDERED. MRI WAS COMPLETED AND PT WAS TRANSPORTED BACK TO THE FLOOR. LUNG SOUNDS CLEAR. ABDOMEN SOFT/NON TENDER WITH ACTIVE BOWEL SOUNDS. UNABLE TO FOLLOW COMMANDS. EEG WAS COMPLETED THIS SHIFT. PT IS UNABLE TO TAKE PO MEDICATIONS AT THIS TIME. BED SAFETY ON AND SEIZURE PADS IN PLACE. WILL CONTINUE TO MONITOR.
[2021-06-11 17:58] LABS: POC Glucose,Bedside 200 (70-110)
--- NOTE | 2021-06-11 21:15 | HMH.HP ---
*Admission Date: 06/11/21 *Chief complaint: Altered mental status, possible seizures *History of present illness: 50-year-old female with history of poorly controlled type 2 diabetes who was admitted to this hospital approximately 2-1/2 weeks ago with mental status changes and glucose levels greater than 700. This was controlled, the diagnosis of possible hyperosmolar mental status changes was made, patient improved with glucose control and fluids and was discharged home. Unfortunately over the past couple of weeks she is not really been herself, her family brought her back to this emergency department 5 days ago for headache, altered mental status, and treatment with fluids and Phenergan improved her situation and the diagnosis of possible migraine disorder was made. However a couple of days after that she had significant problems with spells of tonic/clonic movements and thrashing about with altered mental status and she was taken to the [facility]. There CT scan reportedly was done but family was really unaware of other treatments in the ER and after several hours of observation she was released, again with a diagnosis of possible complicated migraine. She is not been well since that time and is really not regained her normal level of communication function. She was brought to this emergency department in the early hours of this morning and was treated initially for possible pseudoseizures with Depakote loading. However, she continued to exhibit altered level of consciousness, was unable to care for self and had further spells of abnormal movements. She was admitted to this hospital for further evaluation and diagnostic testing. [facility] History Medical History: Reports:: Anxiety, Depression, Diabetes Mellitus Type 2, Hyperlipidemia, Hypertension Denies:: Cancer, Diabetes Mellitus Type 1, MRSA *Have you ever received a pneumonia vaccine?: (unable to resond) *Have you received a flu vaccine this season?: (unable to respond) Other Medical History: Reports: Hypothyroidism, Thyroid Disease Other Surgeries: Yes: Appendectomy, Cholecystectomy, Hysterectomy-Total Amputation: No Fractures: No - *Social History Smoking Status: Never smoker Alcohol Intake: never Substance Use Type: denies use *Occupational Status:: unemployed Housing: house Household Members: family, children *Travel in the last 8 weeks: None - Psychiatric History Pschychiatric History:: Reports:: Anxiety, Depression Family Hx:: Coronary Artery Disease, Diabetes Review of Systems - Review of Systems Review of systems:: unable to obtain - *Neurologic Reports seizure-like activity Meds Home Medications Medication Instructions Recorded Confirmed Type Venlafaxine HCl [Venlafaxine HCl 150 mg PO DAILY 06/11/18 06/11/21 History ER] Metformin HCl 500 mg PO BID 06/12/18 06/11/21 History aspirin 81 mg tablet,delayed 81 mg PO DAILY 06/04/19 06/11/21 History release glimepiride 4 mg tablet 4 mg PO DAILY 06/04/19 06/11/21 History bupropion HCl 150 mg 24 hr tablet, 150 mg PO DAILY tab 07/28/20 06/11/21 History extended release furosemide 40 mg tablet 40 mg PO DAILY tab 07/28/20 06/11/21 History Atorvastatin Calcium [Lipitor 20mg 20 mg PO HS 05/28/21 06/11/21 History Tab] Gabapentin [Neurontin 600mg 600 mg PO QID 05/28/21 06/11/21 History tablet] Levothyroxine Sodium 125 mcg PO DAILY 05/28/21 06/11/21 History [Levothyroxine 125mcg (0.125mg) Tab] Spironolactone 50 mg PO DAILY 05/28/21 06/11/21 History Acetaminophen [Acetaminophen 325mg 650 mg PO Q4HP PRN tab 05/30/21 06/11/21 Rx tab] Insulin Glargine,Hum.rec.anlog 25 unit SQ HS 30 Days #1 05/30/21 06/11/21 Rx [Lantus Solostar 100 Units/mL 3mL flexpen] Promethazine HCl [Phenergan 25mg 25 mg PO BID #14 tab 06/07/21 06/11/21 Rx tab] Divalproex Sodium [Divalproex 500 mg PO BID 06/11/21 06/11/21 History Sodium ER] Metoprolol Succinate [Metopro
[2021-06-11 21:45] LABS: POC Glucose,Bedside 167 (70-110)
[2021-06-12] VITALS (9 sets, daily range): BP systolic 122–176; BP diastolic 72–98; PULSE 90–104; RESP 16–20; TEMP 36.4–37.4; O2SAT 95–100; BMI 36.7; BMI 36.2
--- NOTE | 2021-06-12 06:12 | PC.NURSE ---
Pt has remained nonverbal or coherent t/o shift. Unable to follow commands. No seizure activity thus far in shift. Pt is unable to take any PO meds. bed alarm and seizure pads remain in place for safety. Call light within reach.
[2021-06-12 06:37] LABS: POC Glucose,Bedside 145 (70-110)
--- NOTE | 2021-06-12 06:56 | HMH.ACPN2 ---
Internal Medicine - PN: Subj *Date: 06/12/21 *Time: 18:35 Interval history: 50-year-old female admitted for altered mental status and suspected seizures. MRI obtained yesterday. Reviewed results this morning showing acute left posterior occipital watershed infarct. Patient is continued to have seizure-like activity overnight. EEG obtained, read pending. On rounds this morning patient was alert but unresponsive to questioning. Came back to finish rounds after seeing a few other patients and patient was noted to still be poorly responsive. She promptly had deviation of her head to the right with tonic-clonic movement of her right arm. This episode lasted approximately 30 seconds and she appeared fatigued and somewhat disoriented after the event. Consistent with post ictal state. Gradually improved in orientation and was able to answer yes/no questions but could not recall her name or her birthdate. Patient had no focal neurologic deficit noted on exam at that time but was globally weak and difficult to assess. Exam Vital signs and Labs for Last 24 Hours: Temp Pulse Resp BP Pulse Ox 98.6 F 91 H 16 172/98 H 95 06/12/21 04:37 06/12/21 04:37 06/12/21 04:37 06/12/21 04:37 06/12/21 04:37 Laboratory Results - last 24 hr 06/11/21 08:40: SARS-CoV-2 (PCR) Not detected, Influenza A Untype (PCR) Not detected, Influenza Type B (PCR) Not detected 06/11/21 11:38: POC Glucose 225 H 06/11/21 17:09: POC Glucose 200 H 06/11/21 21:35: POC Glucose 167 H 06/12/21 06:26: POC Glucose 145 H I & O for Last 24 hours: Intake & Output 06/09/21 06/10/21 06/11/21 06/12/21 23:59 23:59 23:59 23:59 Weight 118 kg 100.017 kg - Constitutional no acute distress, obese - *Routine HEENT Exam Head: Present: normocephalic Eye: Present: EOMI, PERRL ENT: Present: mucous membranes moist - *Routine Neck Exam Present: supple. Absent: lymphadenopathy - *Routine Respiratory Exam Present: CTA bilaterally - *Routine Cardiovascular Exam Present: RRR - *Routine Abdominal Exam Present: soft, normoactive bowel sounds. Absent: tenderness - *Routine Extremities Exam Absent: cyanosis, clubbing, edema - *Routine Skin Exam Present: warm. Absent: rash - *Routine Neurological Exam Present: alert, altered mental status Globally weak, able to follow commands with wiggling of toes and squeezing hands bilaterally. Unable to follow commands for extraocular movement or cranial nerve assessment. Weak and proximal lower extremities, strength globally 3 out of 5 Assessment and Plan (1) Partial seizure Status: Acute Category: Medical Code(s): R56.9 - Unspecified convulsions (2) Occipital stroke Status: Acute Category: Medical Code(s): I63.9 - Cerebral infarction, unspecified (3) Diabetes Status: Chronic Qualifiers: Diabetes mellitus type: type 2 Diabetes mellitus mcc insulin use: with intermediate manager use Diabetes mellitus complication status: without complication Qualified Code(s): E11.9 - Type 2 diabetes mellitus without complications; Z79.4 - roasterman (current) use of insulin Category: Medical Code(s): E11.9 - Type 2 diabetes mellitus without complications (4) Encephalopathy Status: Acute Category: Medical Code(s): G93.40 - Encephalopathy, unspecified (5) Hx of CABG Status: Chronic Category: Surgical Code(s): Z95.1 - Presence of aortocoronary bypass graft (6) Type 2 diabetes mellitus Status: Chronic Qualifiers: Diabetes mellitus intermediate manager insulin use: without mcc use Diabetes mellitus complication status: with other specified complication Qualified Code(s): E11.69 - Type 2 diabetes mellitus with other specified complication Category: Medical Code(s): E11.9 - Type 2 diabetes mellitus without complications (7) Hyperglycemia Status: Acute Category: Medical Code(s): R73.9 - Hyperglycemia, unspecified (8) HTN (hypertension) Status: Chronic Qualif
[2021-06-12 07:22] LABS: Basophils # 0.1 K/mm3 (0-0.2); Basophils % 0.7 % (0.1-2.0); Eosinophils # 0.2 K/mm3 (0.0-0.4); Hematocrit 43.6 % (37.0-47.0); Hemoglobin 14.4 g/dL (12.2-16.2); Lymphocytes # 1.2 K/mm3 (0.7-4.5); Lymphocytes % 17.1 % (10-50); Mean Corpuscular HGB Conc 32.9 g/dL (31.8-35.4); Mean Corpuscular Hemoglobin 26.3 pg (27.0-31.2); Mean Corpuscular Volume 79.7 fl (81-99); Mean Platelet Volume 7.9 fl (7.4-10.4); Monocytes # 0.4 K/mm3 (0.1-1.0); Monocytes % 6.1 % (1.7-9.3); Neutrophils # 5.1 K/mm3 (1.8-7.8); Platelet Count 235 K/mm3 (142-424); Red Blood Count 5.47 M/mm3 (4.20-5.40); Red Cell Distribution Width 14.5 % (11.5-17.5)
[2021-06-12 07:29] LABS: Anion Gap 8.5 mEq/L (5-15); Blood Urea Nitrogen 10 mg/dl (7-17); Calcium 8.6 mg/dl (8.4-10.2); Carbon Dioxide 31 mmol/L (22.0-30.0); Chloride 106 mmol/L (98-107); Creatinine Clearance Estimated 148 mL/min (50-200); Estimated Glomerular Filt Rate 88 ml/min (>60); GFR (African American) 106 ML/MIN (>60); Glucose 140 mg/dl (74-100); Potassium 3.5 mmoL/L (3.5-5.1); Sodium 142 mmol/L (136-145)
--- NOTE | 2021-06-12 11:02 | PC.NURSE ---
DR AVILA WAS CONTACTED REGARDING SEIZURE ACTIVITY. 3 SEIZURE HAVE BEEN WITNESSED BY STAFF SO FAR THIS SHIFT, EACH LASTING AROUND 10-15 SECONDS. STATED TO FINISH LOADING DOSE OF KEPPRA IV. ALSO TOLD DR AVILA ABOUT INABILITY TO TAKE PO MEDICATIONS. ENALOPRIL 1.25 MG IV ORDERED FOR HYPERTENSION.
[2021-06-12 12:27] LABS: POC Glucose,Bedside 125 (70-110)
--- NOTE | 2021-06-12 13:04 | DIET.NUTRFU ---
Nutrition consult received for pt assessment s/p stroke, nutritional assessment completed 06/11. Pt has been resting at all attempts visits. She has refused both meals offered thus far and has been unable to tolerate PO meds. Speech eval recommended, communicated this with care management. Moderate soft modifications added to diet order at this time, pt given ADA/GIULIANA diet. Written diet edu for low sodium diet provided and will f/u for verbal.
--- NOTE | 2021-06-12 18:33 | CT_ITS ---
PROCEDURE INFORMATION: Exam: CT Angiography Head With Contrast, Arteriography Exam date and time: 06/12/2021 6:33 PM Age: 50 years old Clinical indication: Other: Seizures; Additional info: New onset stroke and seizures TECHNIQUE: Imaging protocol: Computed tomography angiography of the head with contrast. Exam focused on the arteries. 3D rendering (Not supervised by radiologist): MIP and/or 3D reconstructed images were created by the technologist. Radiation optimization: All CT scans at this facility use at least one of these dose optimization techniques: automated exposure control; mA and/or kV adjustment per patient size (includes targeted exams where dose is matched to clinical indication); or iterative reconstruction. Contrast material: ISOVUE 370; Contrast volume: 100 ml; Contrast route: INTRAVENOUS (IV); COMPARISON: CT ANGIO HEAD 05/27/2021 2:54 PM FINDINGS: ANTERIOR CIRCULATION: Right internal carotid artery: Unremarkable. Intracranial segment is patent with no significant stenosis. No aneurysm. Right middle cerebral artery: Unremarkable. No occlusion or significant stenosis. No aneurysm. Right anterior cerebral artery: Unremarkable. No occlusion or significant stenosis. No aneurysm. Left internal carotid artery: Again, there is stenosis of the clinoid portion of the left internal carotid artery. Approximately 70% stenosis at the level of the distal left carotid siphon. Similar findings are noted on prior examination. Left middle cerebral artery: Unremarkable. No occlusion or significant stenosis. No aneurysm. Left anterior cerebral artery: Unremarkable. No occlusion or significant stenosis. No aneurysm. POSTERIOR CIRCULATION: Right vertebral artery: Unremarkable. No occlusion or significant stenosis. No aneurysm. Right vertebral artery is dominant. Left vertebral artery: Unremarkable. No occlusion or significant stenosis. No aneurysm. Basilar artery: Unremarkable. No occlusion or significant stenosis. No aneurysm. Right posterior cerebral artery: Again, there is absence of the P1 segment. Right P2 fills through a patent right posterior communicating artery. This is felt to represent normal variation. No occlusion or significant stenosis. No aneurysm. Left posterior cerebral artery: Unremarkable. No occlusion or significant stenosis. No aneurysm. Brain: Mild central and peripheral cerebral atrophy identified. Similar findings noted on prior examination of 05/27/2021. There is a small area of calcification noted along the right lateral aspect of the rostral falx cerebri. This is unchanged. It could represent a small calcified meningioma or benign calcification of the falx. Cerebral ventricles: Mild asymmetry in the size of the lateral ventricles with the right lateral ventricle. A larger than the left. This is felt to represent normal variation. Bones/joints: Unremarkable. No acute fracture. Bones/joints: Unremarkable. No acute fracture. Soft tissues: Unremarkable. IMPRESSION: 1. 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 2. No evidence of vascular stenosis or occlusion of arteries arising from the [place]. 3. Persistent circulation right posterior cerebral artery with right P2 filling through a patent right posterior communicating artery. 4. Benign calcified lesion right lower aspect of the anterior falx. 5. There is asymmetry of the lateral ventricles with the right lateral ventricle periaortic and on the left. This is felt to represent normal variation. 6. Taking into account differences in technique no interval change
--- NOTE | 2021-06-12 20:32 | PC.NURSE ---
cleaned pt up as pt found lying in stool, pt had 1 focal seizure at 1947 prior to cleaning up and then pt had another focal seizure at 2006 after inserted 20G IV to right AC; pt to ct scan, will await results
--- NOTE | 2021-06-12 21:20 | PC.NURSE ---
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
[2021-06-13] VITALS (9 sets, daily range): BP systolic 155–191; BP diastolic 71–98; PULSE 97–120; RESP 16–29; TEMP 36.4–37.5; O2SAT 96–99; BMI 36.8
--- NOTE | 2021-06-13 06:15 | PC.NURSE ---
pt still having focal and tonic clonic seizures with and without stimulation, eyes have forced deviation and then nystagmus, pt smacks lips rhythmically and stretches out right arm, flexes left arm, and body and bilateral lower extremities tense and rigid; episodes never last longer than 1 minute, pt with slight post ictal phase afterward; pt very tearful and has frequent bowel movements
--- NOTE | 2021-06-13 08:26 | HMH.ACPN2 ---
Internal Medicine - PN: Subj *Date: 06/13/21 *Time: 08:26 Interval history: Patient had several more partial seizure episode yesterday. We called the [facility] neurology who recommended further loading and higher doses of Keppra. She was also accepted in transfer to their service but bed availability is a problem. Overnight she is done fairly well in regards to diminishing frequency of partial seizure episodes. Continues to be fairly nonverbal but does not have an oxygen requirement, had a good bowel movement this morning and has been more awake. Exam Vital signs and Labs for Last 24 Hours: Temp Pulse Resp BP Pulse Ox 98.2 F 111 H 20 161/72 H 98 06/13/21 04:00 06/13/21 04:00 06/13/21 04:00 06/13/21 04:00 06/13/21 04:00 Laboratory Results - last 24 hr 06/12/21 12:20: POC Glucose 125 H I & O for Last 24 hours: Intake & Output 06/10/21 06/11/21 06/12/21 06/13/21 11:59 11:59 11:59 11:59 Weight 259 lb 15.999 oz 217 lb 9 oz 221 lb 2 oz Microbiology Reports for the Last 24 Hours: Microbiology 06/11/21 03:25 Blood Blood Culture - Preliminary NO GROWTH AFTER 48 HOURS 06/11/21 03:25 Blood Blood Culture - Preliminary NO GROWTH AFTER 48 HOURS Narrative: Patient is awake, follows me with her head but is nonverbal. Does not follow commands. Her right arm remains flaccid. 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 Reflexes are normal on the left side, not appreciable in the right arm. Lungs have good air movement, heart rate regular. Abdomen soft. Oropharynx is moist. Assessment and Plan (1) Partial seizure Status: Acute Category: Medical Code(s): R56.9 - Unspecified convulsions (2) Occipital stroke Status: Acute Category: Medical Code(s): I63.9 - Cerebral infarction, unspecified (3) Diabetes Status: Chronic Qualifiers: Diabetes mellitus type: type 2 Diabetes mellitus terminal system operator insulin use: with terminal system operator use Diabetes mellitus complication status: without complication Qualified Code(s): E11.9 - Type 2 diabetes mellitus without complications; Z79.4 - shelter (current) use of insulin Category: Medical Code(s): E11.9 - Type 2 diabetes mellitus without complications (4) Encephalopathy Status: Acute Category: Medical Code(s): G93.40 - Encephalopathy, unspecified (5) Hx of CABG Status: Chronic Category: Surgical Code(s): Z95.1 - Presence of aortocoronary bypass graft (6) Type 2 diabetes mellitus Status: Chronic Qualifiers: Diabetes mellitus terminal system operator insulin use: without terminal system operator use Diabetes mellitus complication status: with other specified complication Qualified Code(s): E11.69 - Type 2 diabetes mellitus with other specified complication Category: Medical Code(s): E11.9 - Type 2 diabetes mellitus without complications (7) Hyperglycemia Status: Acute Category: Medical Code(s): R73.9 - Hyperglycemia, unspecified (8) HTN (hypertension) Status: Chronic Qualifiers: Hypertension type: essential hypertension Category: Medical Code(s): I10 - Essential (primary) hypertension (9) Hypothyroidism Status: Chronic Qualifiers: Hypothyroidism type: unspecified Qualified Code(s): E03.9 - Hypothyroidism, unspecified Category: Medical Code(s): E03.9 - Hypothyroidism, unspecified - Assessment and plan all Dx Assessment and Plan for all problems:: Patient is very slightly improved, watch electrolytes tomorrow. Will need to consider nutritional support in the next day or so if she does not improve cognitively. If bed becomes available at will transfer. Continue anticoagulation therapy for her occipital stroke issues.
[2021-06-13 12:18] LABS: Chloride 107 mmol/L (98-107)
[2021-06-13 12:19] LABS: Potassium 3.9 mmoL/L (3.5-5.1); Sodium 143 mmol/L (136-145)
[2021-06-13 12:21] LABS: Blood Urea Nitrogen 10 mg/dl (7-17); Creatinine Clearance Estimated 130 mL/min (50-200); Estimated Glomerular Filt Rate 75 ml/min (>60); GFR (African American) 91 ML/MIN (>60)
[2021-06-13 12:22] LABS: Anion Gap 16.9 mEq/L (5-15); Calcium 8.9 mg/dl (8.4-10.2); Carbon Dioxide 23 mmol/L (22.0-30.0); Glucose 176 mg/dl (74-100)
[2021-06-13 12:26] LABS: POC Glucose,Bedside 167 (70-110)
[2021-06-13 15:00] LABS: Microscopic,Cath URINE MICROSCOPIC (MICROSCOPIC)
[2021-06-13 15:03] LABS: Appearance,Urine/Cath SL CLOUDY (Clear); Blood, Urine/Cath Negative (Negative); Color,Urine/Cath YELLOW (Yellow); Glucose,Urine/Cath (UA) Negative (Negative); Ketones,Urine/Cath 1+ (Negative); Leukocyte Esterase,Cath Negative (Negative); Nitrate,Cath Negative (Negative); PH,Urine/Cath 5.5 (5.0-8.5); Protein,Urine/Cath 2+ (Negative); Specific Gravity, Urine/Cath 1.025 (1.005-1.030); Urobilinogen,Cath 0.2 EU/dl (0.2)
[2021-06-13 15:05] LABS: Bilirubin,Cath 1+ (Negative)
[2021-06-13 15:26] LABS: Bacteria,Urine/Cath 1+ /lpf; Squamous Epithelial Ur./Cath Occasional #/hpf (0-5); Yeast,Urine/Cath 4+
--- NOTE | 2021-06-13 16:20 | PC.NURSE ---
pt transferred to room 216 step down. I am not assuming care as the RN>
[2021-06-13 17:07] LABS: POC Glucose,Bedside 161 (70-110)
--- NOTE | 2021-06-13 17:41 | PC.NURSE ---
Addendum entered by Jose Porter RN 06/13/21 17:51: This RN did also speak with nitesh Ladd this shift earlier in day w/ update. Will make family aware pt is going to be transferred. Original Note: This am pt was seizing approx q 5 minutes. Received order for x 1 dose of 2 mg ativan. This seemed to help calm pt and allow more rest, although seizure activity continued to occur. Dr. Kulkarni ordered valium per sep and depakote per sep. Pt has continued to seize, although less, seizure activity was still occurring. Pt appears to have seizure activity with any stimulation and R side is affected most. Dr. Kulkarni frequently updated this shift and gave another x 1 dose of valium, per sep with minimal response. BP stable, HR low 100's, afebrile, RR 22. Applied 02 @ 2 L and sats mid 90's. IV started in R breast 22 g and a 20 g started in R AC. PERRL noted, with pupil sz of 3. Dr. Kulkarni ordered a castañeda insertion as pt was frequently incont of B&B this am. Dr. Kulkarni ordered pt to be transferred to step down @ approx 1530, report given to Roma whittaker RN. Pt is going to be transferred to [facility] via [facility].
--- NOTE | 2021-06-13 17:51 | PC.NURSE ---
report called to [facility] in [place], [place]. Spoke to Sherrie. . Pt is going to 2B ICU [facility]. Family has been updated.
--- NOTE | 2021-06-13 18:00 | PC.NURSE ---
[facility] called and are enroute to transport pt.
--- NOTE | 2021-06-13 18:53 | PC.NURSE ---
pt has left with air transport at this time
--- NOTE | 2021-06-13 20:05 | HMH.DCSUM ---
General - General Admission date:: 06/11/21 Discharge date: 06/13/21 HPI HPI: 50-year-old female with history of poorly controlled type 2 diabetes who was admitted to this hospital approximately 2-1/2 weeks ago with mental status changes and glucose levels greater than 700. This was controlled, the diagnosis of possible hyperosmolar mental status changes was made, patient improved with glucose control and fluids and was discharged home. Unfortunately over the past couple of weeks she is not really been herself, her family brought her back to this emergency department 5 days ago for headache, altered mental status, and treatment with fluids and Phenergan improved her situation and the diagnosis of possible migraine disorder was made. However a couple of days after that she had significant problems with spells of tonic/clonic movements and thrashing about with altered mental status and she was taken to the [facility]. There CT scan reportedly was done but family was really unaware of other treatments in the ER and after several hours of observation she was released, again with a diagnosis of possible complicated migraine. She is not been well since that time and is really not regained her normal level of communication function. She was brought to this emergency department in the early hours of this morning and was treated initially for possible pseudoseizures with Depakote loading. However, she continued to exhibit altered level of consciousness, was unable to care for self and had further spells of abnormal movements. She was admitted to this hospital for further evaluation and diagnostic testing. Hospital Course Hospital Course: Patient was admitted to hospital. When I examined her she appeared to have right-sided flaccidity consistent with a Galindo's paralysis and began to have an active partial seizure, with right head deviation, right arm tonic-clonic jerking and leg jerking. This was resolved with IV Ativan, and EEG confirmed irregular epileptiform discharges in between waves of encephalopathic activity. MRI done on the day of admission revealed a new watershed occipital infarct. Patient was loaded with Keppra and initially improved but over the next 24 hours began to have significant breakthrough seizures. This morning with worsening seizures we added valproic acid load IV and had increased her Keppra the day before. She continued to fail to respond to these measures and IV diazepam was given with some success. I contacted neurology at [facility], Dr. Dotson, and patient was accepted to the ICU at [facility] for further diagnostic testing, neurology consultation and ongoing EEG monitoring. She was transferred there by air transport. Objective Vital signs: Temp Pulse Resp BP Pulse Ox 97.6 F 97 H 23 155/81 H 96 06/13/21 16:00 06/13/21 18:00 06/13/21 18:00 06/13/21 18:00 06/13/21 18:00 mild distress, morbidly obese - *Routine HEENT Exam Head: Present: normocephalic Eye: Present: EOMI, PERRL ENT: Present: mucous membranes moist - *Routine Neck Exam Present: supple - *Routine Respiratory Exam Present: CTA bilaterally - *Routine Cardiovascular Exam Present: RRR - *Routine Abdominal Exam Present: soft, normoactive bowel sounds. Absent: tenderness - *Routine Extremities Exam Absent: cyanosis, clubbing, edema - *Routine Skin Exam Present: warm. Absent: rash - *Routine Neurological Exam With ongoing seizure activity intermittently with right arm tonic-clonic jerking and right head deviation. In between is obtunded. Postictal. Neurologically greatly compromised. - Detailed Eye Exam Eyelids: Bilateral normal inspection Results Labs on day of discharge: Labs from last 24 hours 06/13/21 06/13/21 06/13/21 15:16 12:06 12:03 Sodium 143 Potassium 3.9 Chloride 107 Carbon Dioxide 23 Anion Gap 16.9 H BUN 10 Creatinine
[2021-06-14 21:16] LABS: POC Glucose,Bedside 125 (70-110)
[2021-06-14 21:16] LABS: POC Glucose,Bedside 143 (70-110)
== END 2021-06-13 18:56 | disposition short-term general hospital (02) | DRG 65 ==
LOC: ER 07:12 → 2ND 06-12 07:21
PROVIDERS: Admitting Provider Internal Medicine Adolescent Medicine; Emergency Provider Emergency Medicine; PCP Internal Medicine Adolescent Medicine; Visit Provider Internal Medicine Adolescent Medicine
DX: I63.9 Cerebral infarction, unspecified (principal); G93.40 Encephalopathy, unspecified; Z20.822 Contact with and (suspected) exposure to COVID-19; E11.9 Type 2 diabetes mellitus without complications; R56.9 Unspecified convulsions; Z79.4 Long term (current) use of insulin; E03.9 Hypothyroidism, unspecified; I10 Essential (primary) hypertension; E78.5 Hyperlipidemia, unspecified; Z87.891 Personal history of nicotine dependence; Z95.1 Presence of aortocoronary bypass graft; G83.84 Todd's paralysis (postepileptic)
CPT/HCPCS: 70450; 70496; 70553; 71045; 80048; 80053; 80305; 81001; 82962; 83605; 84145; 85025; 85651; 86140; 87040; 87086; 93005; 95816; 96365; 99285; A9576; C9803; J1953; Q9967; U0003; U0005